=== PATIENT | female | born 1930 | race Caucasian/White ===

== ENCOUNTER 2016-10-09 09:38 | Outpatient (CLI) | payer MEDICARE, OTHER | END 2016-10-09 09:39 | disposition home or self-care (01) | DX: M25.551 Pain in right hip (principal); M89.9 Disorder of bone, unspecified | CPT/HCPCS: 78306; A9503 ==

== ENCOUNTER 2016-10-11 10:51 | Outpatient (CLI) | payer MEDICARE, OTHER | END 2016-10-11 10:52 | disposition home or self-care (01) | DX: M89.9 Disorder of bone, unspecified (principal); Z13.0 Encounter for screening for diseases of the blood and blood-forming organs and certain disorders involving the immune mechanism ==

== ENCOUNTER 2016-10-18 15:36 | Outpatient (CLI) | payer MEDICARE, OTHER | END 2016-10-18 15:37 | disposition home or self-care (01) | DX: Z01.818 Encounter for other preprocedural examination (principal); Z01.812 Encounter for preprocedural laboratory examination; R73.9 Hyperglycemia, unspecified; N39.0 Urinary tract infection, site not specified ==

== ENCOUNTER 2018-02-02 07:23 | Outpatient (CLI) | payer MEDICARE, OTHER ==
[2018-02-02 12:11] LABS: ALBUMIN 3.7 g/dL (3.2-5.5); ALBUMIN/GLOBULIN RATIO 1.2 (1.0-2.2); ALKALINE PHOSPHATASE 58 IU/L (42-121); ALT ALANINE AMINOTRANSFERASE 24 IU/L (10-60); AST ASPARTATE AMINOTRANSFERASE 27 IU/L (10-42); BILIRUBIN,TOTAL 0.7 mg/dL (0.2-1.0); BUN - BLOOD UREA NITROGEN 15 mg/dL (6-20); CALCIUM 9.8 mg/dL (8.5-10.3); CARBON DIOXIDE - CO2 27 mmol/L (21-32); CHLORIDE 107 mmol/L (101-111); CHOL/HDL RATIO 3.1 (<4.4); CHOLESTEROL 147 mg/dL; CREATININE 1.1 mg/dL (0.4-1.0); GFR - MDRD 47 (>89); GLUCOSE 109 mg/dL (70-100); HDL CHOLESTEROL 48 mg/dL; LDL CHOLESTEROL,CALCULATED 79 mg/dL; LDL/HDL RATIO 1.6 (<4.4); SODIUM 140 mmol/L (135-145); TOTAL PROTEIN 6.7 g/dL (6.7-8.2); VLDL CHOLESTEROL 20 mg/dL
[2018-02-02 12:47] LABS: HB2 TOTAL 14.3 g/dL; HEMOGLOBIN A1C 0.56 g/dL; HEMOGLOBIN A1C % 5.7 % (4.6-6.2)
[2018-02-02 17:45] LABS: BASOPHILS % (AUTO) 0.6 %; EOSINOPHILS # (AUTO) 0.2 10^3/uL (0.0-0.7); EOSINOPHILS % (AUTO) 3.7 %; HGB - HEMOGLOBIN 13.4 g/dL (12.0-16.0); LYMPHOCYTES # (AUTO) 1.3 10^3/uL (1.5-3.5); LYMPHOCYTES % (AUTO) 23.6 %; MEAN CORPUSCULAR HGB CONC 32.2 g/dL (32.0-36.0); MEAN PLATELET VOLUME 9.8 fL (7.9-10.8); MONOCYTES # (AUTO) 0.6 10^3/uL (0.0-1.0); MONOCYTES % (AUTO) 11.6 %; NEUTROPHILS # (AUTO) 3.2 10^3/uL (1.5-6.6); NEUTROPHILS % (AUTO) 60.5 %; PLT - PLATELET COUNT 157 10^3/uL (130-450); RED BLOOD COUNT 4.62 10^6/uL (4.20-5.40); RED CELL DISTRIBUTION WIDTH 14.4 % (12.0-15.0); WHITE BLOOD COUNT 5.3 x10^3/uL (4.8-10.8)
== END 2018-02-02 07:24 | disposition home or self-care (01) ==
LOC: LAB.F 07:23
PROVIDERS: ATTEND Family Medicine
DX: R53.83 Other fatigue (principal); F41.8 Other specified anxiety disorders; E78.5 Hyperlipidemia, unspecified
CPT/HCPCS: 36415; 80053; 80061; 83036; 83721; 84443; 85025

== ENCOUNTER 2018-02-04 20:55 | Outpatient (CLI) | payer MEDICARE, OTHER ==
--- NOTE | 2018-02-05 02:28 | Ultrasound Report ---
Procedure Date: 02/04/2018 Accession Number: [id number] / [id number] Procedure: US - Carotid Doppler Complete CPT Code: FULL RESULT: EXAM: BILATERAL CAROTID AND VERTEBRAL ARTERY DUPLEX DOPPLER ULTRASOUND: EXAM DATE: 02/04/2018 09:40 PM CLINICAL HISTORY: Hollenhorst plaque, hyperlipidemia. COMPARISON: None. TECHNIQUE: Grayscale imaging, color Doppler, and duplex spectral Doppler were used to evaluate the carotid and vertebral arteries bilaterally. Static images were obtained. FINDINGS: Mild atheromatous plaques are present in the right carotid bulb extending into the internal carotid artery. However, no hemodynamically significant stenoses are noted. Mild atheromatous plaques are present in the left carotid bulb extending into the internal carotid artery. However, no hemodynamically significant stenoses are noted. Visualized portions of the neck soft tissues are grossly unremarkable. Both vertebral arteries are antegrade in flow. Normal antegrade flow is present in bilateral vertebral arteries. VELOCITIES (cm/sec): Right: RCCA Prox: PSV 163.1 cm/sec. RCCA Dist: PSV 60.3 cm/sec, EDV 16.6 cm/sec. RECA: PSV 98.7 cm/sec. R Bulb: PSV 52.7 cm/sec, EDV 11.1 cm/sec, ICA/CCA ratio 0.9. TRICIA Prox: PSV 76.5 cm/sec, EDV 22.7 cm/sec, ICA/CCA ratio 1.3. TRICIA Mid: PSV 80.2 cm/sec, EDV 22.7 cm/sec, ICA/CCA ratio 1.3. TRICIA Dist: PSV 52.9 cm/sec, EDV 17.6 cm/sec, ICA/CCA ratio 0.9. RVA: PSV 96.4 cm/sec. RVA flow direction: Antegrade. Left: LCCA Prox: PSV 109.2 cm/sec. LCCA Dist: PSV 69.2 cm/sec, EDV 20.0 cm/sec. LECA: PSV 88.7 cm/sec. L Bulb: PSV 46.5 cm/sec, EDV 11.9 cm/sec, ICA/CCA ratio 0.7. LICA Prox: PSV 72.5 cm/sec, EDV 23.3 cm/sec, ICA/CCA ratio 1.1. LICA Mid: PSV 86.0 cm/sec, EDV 30.0 cm/sec, ICA/CCA ratio 1.2. LICA Dist: PSV 88.1 cm/sec, EDV 28.7 cm/sec, ICA/CCA ratio 1.3. LVA: PSV 40.0 cm/sec. LVA flow direction: Antegrade. ICA diameter stenosis: Right: <50% by velocity and <70% by NASCET criteria. Left: <50% by velocity and <70% by NASCET criteria. IMPRESSION: 1. No significant bilateral carotid artery plaquing. 2. In the right carotid artery there are no elevated carotid artery velocities to suggest hemodynamically significant stenosis. 3. In the left carotid artery there are no elevated carotid artery velocities to suggest hemodynamically significant stenosis. 4. Normal antegrade flow is present in bilateral vertebral arteries. General Recommendations: Stenosis =50% ICA - Follow-up ultrasound 6-12 months Stenosis <50% ICA - High Risk Patient with plaque - Follow-up ultrasound 1-2 years Normal Study but High Risk Patient - Follow-up ultrasound 3-5 years Management recommendations and diagnostic criteria are based on current IAC endorsed standards in Carotid Artery Stenosis: Grayscale and Doppler Ultrasound Diagnosis. Validated velocity measurements with angiographic measurements and velocity criteria are extrapolated from diameter data as defined by the Society of Radiologists in Ultrasound Consensus Conference Radiology 2003; 229;340-346. RADIA
== END 2018-02-04 20:56 | disposition home or self-care (01) ==
LOC: DI 20:55
PROVIDERS: ATTEND Family Medicine
DX: H34.219 Partial retinal artery occlusion, unspecified eye (principal); E78.5 Hyperlipidemia, unspecified
CPT/HCPCS: 93880

== ENCOUNTER 2018-07-08 09:58 | Outpatient (CLI) | payer MEDICARE, OTHER ==
--- NOTE | 2018-07-08 10:46 | XRAY Report ---
Reason: KNEE PAIN,LEFT Procedure Date: 07/08/2018 Accession Number: [id number] / [id number] Procedure: XR - Knee 3 View LT CPT Code: FULL RESULT: EXAM: LEFT KNEE RADIOGRAPHY EXAM DATE: 07/08/2018 10:13 AM. CLINICAL HISTORY: Knee pain, left. COMPARISON: XR KNEE 3 VIEW 05/18/2007 12:05 PM. TECHNIQUE: 3 views. FINDINGS: Bones: Normal. No fractures or bone lesions. Joints: Mild tricompartmental joint space narrowing. No significant effusion. No subluxation. Soft Tissues: Normal. No soft tissue swelling. IMPRESSION: Tricompartmental osteoarthrosis, mild. RADIA
== END 2018-07-08 09:59 | disposition home or self-care (01) ==
LOC: DI 09:58
PROVIDERS: ATTEND Internal Medicine
DX: M17.12 Unilateral primary osteoarthritis, left knee (principal)

== ENCOUNTER 2019-10-01 11:28 | Outpatient (CLI) | payer MEDICARE, OTHER | END 2019-10-01 11:29 | disposition critical access hospital (66) | LOC: EMS 11:28 | PROVIDERS: ATTEND Surgery | DX: R55 Syncope and collapse (principal); R07.9 Chest pain, unspecified; R05 Cough | CPT/HCPCS: A0425; A0427 ==

== ENCOUNTER 2019-10-01 11:48 | Emergency (ER) | payer MEDICARE, OTHER ==
[2019-10-01 12:47] LABS: BASOPHILS % (AUTO) 0.2 %; EOSINOPHILS # (AUTO) 0.1 10^3/uL (0.0-0.7); EOSINOPHILS % (AUTO) 2.7 %; HGB - HEMOGLOBIN 12.6 g/dL (12.0-16.0); LYMPHOCYTES # (AUTO) 1.5 10^3/uL (1.5-3.5); LYMPHOCYTES % (AUTO) 28.7 %; MEAN CORPUSCULAR HEMOGLOBIN 29.3 pg (27.0-31.0); MEAN CORPUSCULAR HGB CONC 32.4 g/dL (32.0-36.0); MEAN CORPUSCULAR VOLUME 90.5 fL (81.0-99.0); MEAN PLATELET VOLUME 10.9 fL (7.9-10.8); MONOCYTES # (AUTO) 0.6 10^3/uL (0.0-1.0); MONOCYTES % (AUTO) 11.5 %; NEUTROPHILS # (AUTO) 2.9 10^3/uL (1.5-6.6); NEUTROPHILS % (AUTO) 56.7 %; PLT - PLATELET COUNT 155 10^3/uL (130-450); RED CELL DISTRIBUTION WIDTH 13.7 % (12.0-15.0); WHITE BLOOD COUNT 5.1 x10^3/uL (4.8-10.8)
--- NOTE | 2019-10-01 12:47 | XRAY Report ---
Reason: Chest Pain Procedure Date: 10/01/2019 Accession Number: [id number] / [id number] Procedure: XR - Chest 1 View X-Ray CPT Code: 61158 Final Report FULL RESULT: EXAM: CHEST RADIOGRAPHY EXAM DATE: 10/01/2019 12:36 PM. CLINICAL HISTORY: Chest Pain. COMPARISON: CHEST 2 VIEW PA/LAT 05/08/2015 5:00 PM. TECHNIQUE: 1 view. FINDINGS: Lungs/Pleura: No focal opacities evident. No pleural effusion. No pneumothorax. Mediastinum: Within exam limitations, the cardiomediastinal contour is normal. Other: DJD spine. Left shoulder anchor. IMPRESSION: No active cardiopulmonary disease RADIA
[2019-10-01 13:01] LABS: ALBUMIN 3.7 g/dL (3.2-5.5); ALBUMIN/GLOBULIN RATIO 1.4 (1.0-2.2); BILIRUBIN,TOTAL 0.6 mg/dL (0.2-1.0); CALCIUM 9.8 mg/dL (8.5-10.3); CREATININE 1.1 mg/dL (0.4-1.0); TOTAL PROTEIN 6.3 g/dL (6.7-8.2)
--- NOTE | 2019-10-01 13:14 | ED Physician Documentation ---
PD HPI SYNCOPE - Stated complaint Stated Complaint: SYNCOPE - Chief complaint Chief Complaint: General - History obtained from History obtained from: Patient, Family (son), EMS - History of Present Illness Witnessed: Witnessed (son) Timing - onset: How many minutes ago Duration: Minutes (few) Associated symptoms: Dyspnea (has had cough and congestion for 1-2 weeks.). No: Headache, Chest pain, Abdominal pain Contributing factors: Decreased PO intake. No: Recent med change, Noxious stimulae Injury occurred: No: Fell, Head injury, Neck injury Similar symptoms before: No diagnosis (patient and son says she has had fainting type episodes with blank stare and no activity intermittently for few years. Had workup with ECHO, MRI, labs, and Holter. Does not sound like EEG. No firm dx with consideration of syncopal episodes vs atypical seizures. Had few meds without improvement and subsequently started on Cymbalta and did not have episodes (very infrequently) the past couple of years.) Recently seen: Not recently seen Review of Systems Constitutional: reports: Myalgias. denies: Fever, Chills Eyes: denies: Loss of vision Ears: denies: Loss of hearing Nose: reports: Congestion Throat: denies: Sore throat Cardiac: reports: Chest pain / pressure. denies: Palpitations Respiratory: reports: Dyspnea, Cough GI: denies: Abdominal Pain, Nausea, Vomiting, Diarrhea : denies: Dysuria Skin: denies: Abrasion (s), Laceration (s) Neurologic: denies: Generalized weakness, Focal weakness, Numbness, Altered mental status, Headache Endocrine: denies: Easy bruising / bleeding Immunocompromised: denies: Immunocompromised PD PAST MEDICAL HISTORY - Past Medical History Cardiovascular: Murmur Respiratory: None Neuro: Fainting (versus seizures non-tonic/clonic) Endocrine/Autoimmune: None GI: GERD, Colon polyps, Chronic constipation, Other : Renal insuffiency HEENT: Chronic hearing loss Psych: Depression, Anxiety Musculoskeletal: Osteoarthritis, Osteoporosis, Chronic back pain - Past Surgical History Past Surgical History: Yes General: Cholecystectomy, Appendectomy, Colonoscopy, EGD, 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 HEENT: Cataracts - Present Medications Home Medications: Ambulatory Orders Medication Instructions Recorded Confirmed DULoxetine [Cymbalta] 60 mg PO DAILY 10/16/13 03/20/15 Ibandronate Sodium [Boniva] 150 mg PO ONCE 03/17/15 03/20/15 Multivitamin [Multivitamins] 1 each PO DAILY 03/17/15 03/20/15 diazePAM [Valium] 5 - 10 mg PO ONCE 03/20/15 03/20/15 Albuterol [Ventolin Hfa] 2 puffs INH Q4H PRN #1 inhaler 05/08/15 Meclizine [Antivert] 12.5 mg PO Q6H PRN #20 tablet 05/08/15 Albuterol Sulfate [Albuterol 2 puffs IH QID #1 hfa.aer.ad 10/01/19 Sulfate Hfa] Benzonatate [Tessalon Perle] 100 mg PO TID PRN #20 capsule 10/01/19 Doxycycline Monohydrate 100 mg PO BID #14 tablet 10/01/19 dexAMETHasone [Decadron] 4 mg PO DAILY #5 tablet 10/01/19 - Allergies Allergies/Adverse Reactions: Allergies Allergy/AdvReac Type Severity Reaction Status Date / Time adhesive AdvReac Severe Skin comes Verified 03/17/15 10:37 off - Social History Does the pt smoke?: No Smoking Status: Never smoker Does the pt drink ETOH?: No PD ED PE NORMAL - Vitals Vital signs reviewed: Yes - General General: Alert and oriented X 3, No acute distress, Well developed/nourished - HEENT HEENT: Ears normal, Moist mucous membranes, Pharynx benign - Neck Neck: Supple, no meningeal sign, No adenopathy - Cardiac Cardiac: RRR, No murmur - Respiratory Respiratory: Clear bilaterally - Abdomen Abdomen: Soft, Non tender - Derm Derm: Normal color, Warm and dry - Extremities Extremities: No tenderness to palpate, Normal ROM s pain, No edema, No calf tenderness / cord - Neuro Neuro: Alert and oriented X 3, 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, No motor deficit, No sensory deficit, Normal speech Eye Opening: Spontaneous Motor: Obeys Commands Verbal: Oriented GCS Score: 15 - Psych Psych: Normal mood, Normal affect Results - Vitals Vitals: Vital Signs - 24 hr 10/01/19 10/01/19 10/01/19 11:49 13:00 14:00 Temperature 37.1 C Heart Rate 58 L 58 L 57 L Respiratory 16 20 16 Rate Blood Pressure 132/83 H 112/57 L 118/58 L O2 Saturation 99 100 95 02/21/20 02/21/20 14:35 15:30 Temperature Heart Rate 62 59 L Respiratory 23 16 Rate Blood Pressure 115/74 O2 Saturation 100 Oxygen O2 Source Room air - EKG (time done) 11:59 Rate: Rate (enter#) (59) Rhythm: NSR [place]: Normal Intervals: Normal MT QRS: Normal Ischemia: Normal ST segments. No: ST elevation c/w ischemia, ST depression - Labs Labs: Laboratory Tests 10/01/19 10/01/19 10/01/19 12:41 12:41 12:41 WBC 5.1 RBC 4.30 Hgb 12.6 Hct 38.9 MCV 90.5 MCH 29.3 MCHC 32.4 RDW 13.7 Plt Count 155 MPV 10.9 H Neut # (Auto) 2.9 Lymph # (Auto) 1.5 [place] # (Auto) 0.6 Eos # (Auto) 0.1 Baso # (Auto) 0.0 Absolute Nucleated RBC 0.00 Nucleated RBC % 0.0 Sodium 141 Potassium 3.7 Chloride 109 Carbon Dioxide 25 Anion Gap 7.0 BUN 21 H Creatinine 1.1 H Estimated GFR (MDRD) 47 L Glucose 110 H Calcium 9.8 Total Bilirubin 0.6 AST 24 ALT 27 Alkaline Phosphatase 47 Troponin I High Sens 4.4 Total Protein 6.3 L Albumin 3.7 Globulin 2.6 Albumin/Globulin Ratio 1.4 Lipase 38 - Rads (name of study) chest xray Radiology: Prelim report reviewed (no acute cardiopulmonary process), See rad report PD MEDICAL DECISION MAKING - ED course Complexity details: considered differential (patient with history of syncopal/abscence seizure episodes that had been better since on Cymbalta the past couple of years. Has had now cough and congestion for few weeks, with a few episodes of the syncope during that time. Had one today that lasted longer than usual ones (few minutes rather than under a minute). Otherwise seems okay now. ), d/w patient, d/w family (son) Departure - Departure Disposition: 01 Home, Self Care Clinical Impression: Upper respiratory infection Qualifiers: URI type: unspecified URI Qualified Code(s): J06.9 - Acute upper respiratory infection, unspecified Syncope Qualifiers: Syncope type: unspecified Qualified Code(s): R55 - Syncope and collapse Condition: Stable Record reviewed to determine appropriate education?: Yes Instructions: ED URI Viral W Wheezing Follow-Up: Adan Jane MD [Primary Care Provider] - Prescriptions: Albuterol Sulfate [Albuterol Sulfate Hfa] 2 puffs IH QID #1 hfa.aer.ad Benzonatate [Tessalon Perle] 100 mg PO TID PRN #20 capsule PRN Reason: Cough dexAMETHasone [Decadron] 4 mg PO DAILY #5 tablet Doxycycline Monohydrate 100 mg PO BID #14 tablet Comments: Continue your usual Cymbalta 60 mg daily. Stay well-hydrated. For your cough and wheezing, use the albuterol inhaler 2 puffs 4 times a day as well as Decadron 4 mg daily and the doxycycline antibiotic twice daily for a week. Add benzonatate if needed for cough suppression. Recheck if not improving well over the next few days. Follow-up with your primary care regarding the current Cymbalta medication if that is adequate enough since you have had increasing in your fainting episodes. Discharge Date/Time: 10/01/19 15:30
[2019-10-01] MEDS ORDERED: ALBUTEROL NEB 2.5 MG/3 ML INH STA (14:09)
[2019-10-01] MEDS ORDERED: CHERRY SYRUP 10 ML UDC PO ONE (14:10)
[2019-10-01] MEDS ORDERED: DEXAMETHASONE 10 MG/ML VIAL PO STA (14:10)
[2019-10-01] MEDS ORDERED: BENZONATATE 100 MG CAPSULE PO STA (14:10)
[2019-10-01] MEDS ORDERED: KETOROLAC 15 MG/ML VIAL IVP STA (14:11)
[2019-10-01 19:37] VITALS: BP 115/74
== END 2019-10-01 15:30 | disposition home or self-care (01) ==
LOC: EDUNIT# → ED 11:48
DX: J06.9 Acute upper respiratory infection, unspecified (principal); R55 Syncope and collapse
CPT/HCPCS: 36415; 71045; 80053; 83690; 84484; 85025; 93005; 94640; 96374; 99283; 99284; A9270

== ENCOUNTER 2020-01-26 14:04 | Outpatient (CLI) | payer MEDICARE, OTHER ==
--- NOTE | 2020-01-26 14:34 | XRAY Report ---
PROCEDURE: Ribs w/PA Chest RT INDICATIONS: RIGHT RIB PAIN TECHNIQUE: 2 views of the right ribs were acquired, along with a single view chest. COMPARISON: FINDINGS: Surgical changes and devices: None. Bones and chest wall: No fractures or dislocations. No suspicious bony lesions. Overlying soft tis sues appear unremarkable. Lungs and pleura: No pleural effusions or pneumothorax. Lungs appear clear. Mediastinum: Mediastinal contours appear normal. Heart size is normal. IMPRESSION: No acute fracture. No osseous lesion. If symptoms and/or clinical suspicion for pathology continue, f urther assessment with repeat plain films, or advanced imaging (e.g., CT or bone scan) is recommended for further assessment. Reviewed by: Gene Ludwig MD on 01/26/2020 2:33 PM PDT Approved by: Gene Ludwig MD on 01/26/2020 2:33 PM PDT Station ID: [id number]
== END 2020-01-26 14:05 | disposition home or self-care (01) ==
LOC: DI.S 14:04
PROVIDERS: ATTEND Family Medicine
DX: R07.81 Pleurodynia (principal)

== ENCOUNTER 2020-07-10 08:00 | Outpatient (CLI) | payer MEDICARE, OTHER | END 2020-07-10 23:59 | disposition home or self-care (01) | LOC: LAB.WCP 08:00 | PROVIDERS: ATTEND Internal Medicine | DX: R10.30 Lower abdominal pain, unspecified (principal) | CPT/HCPCS: 81002 ==

== ENCOUNTER 2020-07-11 11:41 | Outpatient (CLI) | payer MEDICARE, OTHER ==
[2020-07-11 12:07] LABS: BASOPHILS % (AUTO) 0.4 %; EOSINOPHILS # (AUTO) 0.3 10^3/uL (0.0-0.7); HGB - HEMOGLOBIN 13.3 g/dL (12.0-16.0); LYMPHOCYTES # (AUTO) 0.8 10^3/uL (1.5-3.5); LYMPHOCYTES % (AUTO) 17.3 %; MEAN CORPUSCULAR HEMOGLOBIN 28.9 pg (27.0-31.0); MEAN CORPUSCULAR HGB CONC 31.9 g/dL (32.0-36.0); MEAN CORPUSCULAR VOLUME 90.5 fL (81.0-99.0); MEAN PLATELET VOLUME 9.9 fL (7.9-10.8); MONOCYTES # (AUTO) 0.7 10^3/uL (0.0-1.0); MONOCYTES % (AUTO) 13.9 %; PLT - PLATELET COUNT 198 10^3/uL (130-450); RED BLOOD COUNT 4.61 10^6/uL (4.20-5.40); RED CELL DISTRIBUTION WIDTH 13.2 % (12.0-15.0); WHITE BLOOD COUNT 4.8 x10^3/uL (4.8-10.8)
[2020-07-11] MEDS ORDERED: IOVERSOL 320 100 ML VIAL IVP ONE ×2 (12:16→13:27)
[2020-07-11] MEDS ORDERED: IOVERSOL 320 50 ML VIAL ONE (12:16)
[2020-07-11 12:18] LABS: ALBUMIN/GLOBULIN RATIO 1.3 (1.0-2.2); BILIRUBIN,TOTAL 0.7 mg/dL (0.2-1.0); CALCIUM 10.5 mg/dL (8.5-10.3); CREATININE 1.1 mg/dL (0.4-1.0); TOTAL PROTEIN 7.2 g/dL (6.7-8.2)
[2020-07-11] MEDS ORDERED: IOVERSOL 320 50 ML VIAL PO ONE (13:26)
--- NOTE | 2020-07-11 13:51 | CT Report ---
PROCEDURE: Abdomen/Pelvis W INDICATIONS: ABD PAIN CONTRAST: IV CONTRAST: Optiray 320 ml: 100 PO CONTRAST: Optiray 320 ml50 TECHNIQUE: After the administration of contrast, 5 mm thick sections acquired from the diaphragms to the sym physis. 5 mm thick coronal and sagittal reformats were acquired. For radiation dose reduction, the following was used: automated exposure control, adjustment of mA and/or kV according to patient size . COMPARISON: None. FINDINGS: Image quality: Excellent. ABDOMEN: Lung bases: Lung bases are clear. Heart size is normal. Solid organs: Liver and spleen are normal in size and enhancement. Gallbladder has been removed. B iliary system is non dilated. Pancreas enhances normally. No adrenal nodules. Kidneys demonstrate normal size and enhancement, without hydronephrosis. Peritoneum and bowel: There is a large volume of formed stool throughout most of the colon. There is an area of the sigmoid colonic wall thickening with questionable adjacent fat stranding, and possible engorgement of the vasa recta. There is also diffuse luminal narrowing involving the segment of the colon. Proximal to this there is a large volume of formed stool in the remainder of the sigmoid and d escending colon. There is a separate area of colonic wall thickening at the splenic flexure, which is somewhat eccentric (for example on series 3 image 23 measuring 2 cm posteriorly while only measuring 0.6 mm anteriorly. There is no abnormally dilated loop of bowel. Anastomotic sutures are seen at the hepatic flexure colon with and patulous mildly dilated appearance of the anastomosis. Nodes and vessels: No retroperitoneal or mesenteric adenopathy by size criteria. Aorta and inferior vena cava are normal in size. Miscellaneous: No ventral hernias. PELVIS: Genitourinary: Bladder wall thickness is normal. Miscellaneous: No inguinal hernias or adenopathy. Bones: No suspicious bony lesions. No vertebral body compression fractures. IMPRESSION: Thickened segment of the distal sigmoid colon with subtle adjacent inflammatory changes, presumably i ndicating diverticulitis. Correlate with white blood cell count, fever, and Hemoccult status. Luminal narrowing with large volume of inspissated stool proximal to this thickened segment of sigmoid colon raises concern for an underlying neoplasm. A separate area of eccentric wall thickening in the splen ic flexure is also suspicious for neoplasm. A follow-up colonoscopy in the near future is recommended . Reviewed by: Casey Montalvo MD on 07/11/2020 1:49 PM PST Approved by: Casey Montalvo MD on 07/11/2020 1:49 PM PST Station ID: [id number]
== END 2020-07-11 11:42 | disposition home or self-care (01) ==
LOC: DI 11:41
PROVIDERS: ATTEND Internal Medicine
DX: R93.3 Abnormal findings on diagnostic imaging of other parts of digestive tract (principal); Z85.038 Personal history of other malignant neoplasm of large intestine
CPT/HCPCS: 36415; 74177; 80053; 82378; 85025; Q9967

== ENCOUNTER 2020-07-13 14:37 | Inpatient (IN) | payer MEDICARE, OTHER ==
[2020-07-13] MEDS ORDERED: SODIUM CHLORIDE 0.9% 1,000 ML IV STA ×2 (14:57→15:07)
[2020-07-13 15:27] LABS: BASOPHILS % (AUTO) 0.4 %; EOSINOPHILS # (AUTO) 0.3 10^3/uL (0.0-0.7); EOSINOPHILS % (AUTO) 4.1 %; HGB - HEMOGLOBIN 14.1 g/dL (12.0-16.0); LYMPHOCYTES % (AUTO) 14.3 %; MEAN CORPUSCULAR HEMOGLOBIN 29.2 pg (27.0-31.0); MEAN CORPUSCULAR HGB CONC 32.6 g/dL (32.0-36.0); MEAN CORPUSCULAR VOLUME 89.4 fL (81.0-99.0); MEAN PLATELET VOLUME 10.3 fL (7.9-10.8); MONOCYTES # (AUTO) 0.8 10^3/uL (0.0-1.0); MONOCYTES % (AUTO) 12.1 %; NEUTROPHILS # (AUTO) 4.6 10^3/uL (1.5-6.6); NEUTROPHILS % (AUTO) 68.7 %; PLT - PLATELET COUNT 222 10^3/uL (130-450); RED BLOOD COUNT 4.83 10^6/uL (4.20-5.40); RED CELL DISTRIBUTION WIDTH 13.1 % (12.0-15.0); WHITE BLOOD COUNT 6.8 x10^3/uL (4.8-10.8)
--- NOTE | 2020-07-13 15:35 | ED Physician Documentation ---
History of Present Illness - Stated complaint Stated Complaint: ABD PAIN - Chief complaint Chief Complaint: Abd Pain - History obtained from History obtained from: Patient, Family - History of Present Illness Timing: Prior to arrival - Additonal information Additional information: 89-year-old female comes to the emergency department for evaluation of persistent abdominal pain. She reports that for about 2 to 3 weeks she has been having generalized belly pain. She did see her primary care provider 2 days ago and had routine labs obtained as well as a CAT scan of the abdomen. The CAT scan did show diverticulitis. There is also concern for possible colon neoplasm and they would recommend a colonoscopy in follow-up. Patient was started on Augmentin which she has been taking for 2 days but does not feel that the pain is improved. She reports that she is pooping adequately without melena or hematochezia. She has had no fevers or vomiting. She has been doing a clear liquid diet. Denies dysuria or urinary urgency frequency Review of Systems Constitutional: reports: Reviewed and negative Ears: reports: Reviewed and negative Nose: reports: Reviewed and negative Throat: reports: Reviewed and negative Cardiac: reports: Reviewed and negative Respiratory: reports: Reviewed and negative GI: reports: Abdominal Pain. denies: Nausea, Vomiting, Constipation, Diarrhea, Hematemesis : reports: Reviewed and negative Musculoskeletal: reports: Reviewed and negative Neurologic: reports: Reviewed and negative PD PAST MEDICAL HISTORY - Past Medical History Cardiovascular: Murmur Respiratory: None Neuro: Fainting Endocrine/Autoimmune: None GI: GERD, Colon polyps, Chronic constipation, Other : Renal insuffiency HEENT: Chronic hearing loss Psych: Depression, Anxiety Musculoskeletal: Osteoarthritis, Osteoporosis, Chronic back pain - Past Surgical History Past Surgical History: Yes General: Cholecystectomy, Appendectomy, Colonoscopy, EGD, Other /MITOCHONDRIAL DISORDERS 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 HEENT: Cataracts - Present Medications Home Medications: Ambulatory Orders Medication Instructions Recorded Confirmed DULoxetine [Cymbalta] 60 mg PO DAILY 10/16/13 03/20/15 Ibandronate Sodium [Boniva] 150 mg PO ONCE 03/17/15 03/20/15 Multivitamin [Multivitamins] 1 each PO DAILY 03/17/15 03/20/15 diazePAM [Valium] 5 - 10 mg PO ONCE 03/20/15 03/20/15 Albuterol [Ventolin Hfa] 2 puffs INH Q4H PRN #1 inhaler 05/08/15 Meclizine [Antivert] 12.5 mg PO Q6H PRN #20 tablet 05/08/15 Albuterol Sulfate [Albuterol 2 puffs IH QID #1 hfa.aer.ad 10/01/19 Sulfate Hfa] Benzonatate [Tessalon Perle] 100 mg PO TID PRN #20 capsule 10/01/19 Doxycycline Monohydrate 100 mg PO BID #14 tablet 10/01/19 dexAMETHasone [Decadron] 4 mg PO DAILY #5 tablet 10/01/19 - Allergies Allergies/Adverse Reactions: Allergies Allergy/AdvReac Type Severity Reaction Status Date / Time adhesive AdvReac Severe Skin comes Verified 07/13/20 14:54 off - Social History Does the pt smoke?: No Smoking Status: Never smoker Does the pt drink ETOH?: No Does the pt have substance abuse?: No PD ED PE EXPANDED - General General: Alert, No acute distress - Cardiac Cardiac: Regular Rate, Regular Rhythm, Radial strong equal, Pedal strong equal, Cap refill < 2 sec - Respiratory Respiratory: Clear to ausultation gricelda. No: Distress, Labored - Abdomen Abdomen: Tender to palpation, Rebound, Generalized/diffuse. No: Guarding (Generally tender abdomen right greater than left with some rebound but no guarding.) - Derm Derm: Normal color. No: Rash - Extremities Extremities: Normal - GCS Eye Opening: Spontaneous Motor: Obeys Commands Verbal: Oriented Total: 15 Results - Vitals Vitals: Vital Signs - 24 hr 07/13/20 07/13/20 14:47 16:54 Temperature 36.5 C Heart Rate 84 70 Respiratory 16 18 Rate Blood Pressure 127/68 134/76 H O2 Saturation 98 99 Oxygen O2 Source Room air - Labs Labs: Laboratory Tests 07/13/20 07/13/20 07/13/20 15:11 15:11 15:24 WBC 6.8 RBC 4.83 Hgb 14.1 Hct 43.2 MCV 89.4 MCH 29.2 MCHC 32.6 RDW 13.1 Plt Count 222 MPV 10.3 Neut # (Auto) 4.6 Lymph # (Auto) 1.0 L [place] # (Auto) 0.8 Eos # (Auto) 0.3 Baso # (Auto) 0.0 Absolute Nucleated RBC 0.00 Nucleated RBC % 0.0 Sodium 139 Potassium 3.8 Chloride 101 Carbon Dioxide 25 Anion Gap 13.0 BUN 14 Creatinine 1.3 H Estimated GFR (MDRD) 39 L Glucose 113 H Lactic Acid 1.1 Calcium 10.5 H Total Bilirubin 0.8 AST 26 ALT 28 Alkaline Phosphatase 66 Total Protein 7.5 Albumin 4.0 Globulin 3.5 Albumin/Globulin Ratio 1.1 Lipase 34 Urine Color Urine Clarity Urine pH Ur Specific [place] Urine Protein Urine Glucose (UA) Urine Ketones Urine Occult Blood Urine Nitrite Urine Bilirubin Urine Urobilinogen Ur Leukocyte Esterase Ur Microscopic Review Urine Culture Comments 07/13/20 16:08 WBC RBC Hgb Hct MCV MCH MCHC RDW Plt Count MPV Neut # (Auto) Lymph # (Auto) [place] # (Auto) Eos # (Auto) Baso # (Auto) Absolute Nucleated RBC Nucleated RBC % Sodium Potassium Chloride Carbon Dioxide Anion Gap BUN Creatinine Estimated GFR (MDRD) Glucose Lactic Acid Calcium Total Bilirubin AST ALT Alkaline Phosphatase Total Protein Albumin Globulin Albumin/Globulin Ratio Lipase Urine Color YELLOW Urine Clarity CLEAR Urine pH 6.0 Ur Specific [place] 1.025 Urine Protein NEGATIVE Urine Glucose (UA) NEGATIVE Urine Ketones 15 H Urine Occult Blood NEGATIVE Urine Nitrite NEGATIVE Urine Bilirubin NEGATIVE Urine Urobilinogen 0.2 (NORMAL) Ur Leukocyte Esterase NEGATIVE Ur Microscopic Review NOT INDICATED Urine Culture Comments NOT INDICATED - Rads (name of study) CT abd Radiology: Final report received (An intermediate segment of bowel wall thickening is again seen in the sigmoid colon that may represent colitis or diverticulitis although an underlying neoplasm is not excluded. No significant change from the CT when compared from 07/11/2020) PD MEDICAL DECISION MAKING - ED course Complexity details: reviewed results, re-evaluated patient, considered differential, d/w patient ED course: 89-year-old female presents to the emergency department for evaluation of worsening abdominal pain. Recently diagnosed with diverticulitis and started on Augmentin. Despite 2 days of therapy she feels that the pain is worsening. CT scan completed 2 days ago did show findings of diverticulitis but there is also concern for possible colonic neoplasm. On evaluation today she has no leukocytosis and her creatinine is mildly elevated at 1.3. She was Given 1 additional liter of fluid. I did repeat CT imaging today and unfortunately it is essentially unchanged from 2 days ago. However given the worsening pain and concern for neoplasm I consulted with our hospitalist Dr. H. She agrees to bring the patient in as an inpatient for further treatment of her diverticulitis and evaluation with surgery for possible colonoscopy. Departure - Departure Disposition: [facility] DC/[place] Clinical Impression: Diverticulitis, Colonic mass
[2020-07-13 15:40] LABS: ALBUMIN/GLOBULIN RATIO 1.1 (1.0-2.2); BILIRUBIN,TOTAL 0.8 mg/dL (0.2-1.0); CALCIUM 10.5 mg/dL (8.5-10.3); CREATININE 1.3 mg/dL (0.4-1.0); TOTAL PROTEIN 7.5 g/dL (6.7-8.2)
[2020-07-13 16:18] LABS: BILIRUBIN,URINE NEGATIVE (NEGATIVE); GLUCOSE, URINE (UA) NEGATIVE (NEGATIVE); KETONES,URINE (UA) 15 mg/dL (NEGATIVE); LEUKOCYTE ESTERASE, URINE NEGATIVE (NEGATIVE); NITRITE,URINE NEGATIVE (NEGATIVE); OCCULT BLOOD,URINE NEGATIVE (NEGATIVE); PROTEIN,URINE NEGATIVE (NEGATIVE); UROBILINOGEN,URINE 0.2 (NORMAL) E.U./dL (NORMAL)
[2020-07-13 16:19] LABS: CLARITY,URINE CLEAR (CLEAR)
[2020-07-13] MEDS ORDERED: IOVERSOL 320 100 ML VIAL IVP ONE ×2 (16:34→16:41)
--- NOTE | 2020-07-13 17:12 | CT Report ---
PROCEDURE: Abdomen/Pelvis W INDICATIONS: worsenging abd pain R>L CONTRAST: IV CONTRAST: Optiray 320 ml: 80 PO CONTRAST: *NO PO CONTRAST TECHNIQUE: After the administration of oral and intravenous contrast, 5 mm thick sections acquired from the diap hragms to the symphysis. 5 mm thick coronal and sagittal reformats were acquired. For radiation dos e reduction, the following was used: automated exposure control, adjustment of mA and/or kV accordin g to patient size. COMPARISON: CT abdomen/pelvis 07/11/2020 FINDINGS: Image quality: Excellent. ABDOMEN: Lung bases: Mild peripheral reticulations in the lung bases may represent atelectasis or early fibrot ic changes. Heart size is normal. Solid organs: Liver and spleen are normal in size and enhancement. A coarse calcification is noted in the spleen. Gallbladder is surgically absent. Biliary system is non dilated. Pancreas enhances n ormally. No adrenal nodules. Kidneys demonstrate normal size and enhancement, without hydronephrosi s. Small bilateral renal cysts. Peritoneum and bowel: Segment of bowel wall thickening are seen in the sigmoid colon similar to the C T from 07/11/2020, possibly representing colitis or diverticulitis, although an underlying neoplasm is not excluded. An additional short segment of bowel wall thickening is seen at the splenic flexure. C hronic postsurgical changes are again noted at the ascending colon. No extravasation of oral contrast material is seen. There is no ascites or pneumoperitoneum. No signs of bowel obstruction are seen. Nodes and vessels: No retroperitoneal or mesenteric adenopathy by size criteria. Aorta and inferior vena cava are normal in size. Atherosclerotic calcifications are seen in the aorta. Miscellaneous: No ventral hernias. PELVIS: Genitourinary: Bladder wall thickness is normal. Miscellaneous: No inguinal hernias or adenopathy. Bones: No suspicious bony lesions. No vertebral body compression fractures. Degenerative arthropla sty is noted with associated metallic streak artifact. IMPRESSION: An intermediate segment of bowel wall thickening is again seen in the sigmoid colon that may represen t colitis or diverticulitis, although an underlying neoplasm is not excluded. Short segments of possi ble bowel wall thickening or underdistention are also noted in the descending colon at the splenic fl exure. Findings do not appear significantly changed when compared to the CT from 07/11/2020. No signs of bowel obstruction. No abdominal fluid collections or pneumoperitoneum. Reviewed by: Harish Marqeuz MD on 07/13/2020 4:11 PM [facility] Approved by: Harish Marquez MD on 07/13/2020 4:11 PM [facility] Station ID: [id number]
[2020-07-13] MEDS ORDERED: ACETAMINOPHEN 325 MG TABLET PO PRN (17:33)
[2020-07-13] MEDS ORDERED: ONDANSETRON 4 MG/2 ML VIAL IVP PRN (17:33)
[2020-07-13] MEDS ORDERED: oxyCODONE 5 MG TABLET PO PRN (17:33)
[2020-07-13] MEDS ORDERED: MORPHINE 2 MG/ML CARPUJECT IVP PRN (17:33)
[2020-07-13] MEDS ORDERED: SODIUM CHLORIDE FLUSH 0.9% 10 ML SYRINGE IVP PRN (17:33)
--- NOTE | 2020-07-13 17:49 | HISTORY & PHYSICAL EXAMINATION ---
Chief Complaint - Chief Complaint Chief Complaint: abdominal pain History of Present Illness - Admitted From Admitted From:: ER - History Obtained From Records Reviewed: [facility] History obtained from: pt Exam Limitations: no - History of Present Illness HPI Comment/Other: This is a 89-year-old female with a PMH significant for colon cancer, Heart murmur, fainting, GERD, colon polyps, chronic constipation, renal insuffic iency, chronic healing loss, depression, anxiety, osteoarthritis, osteoporosis, chronic back pain, who comes to the emergency department for complain of persistent abdominal pain. Patient report she had a history of colon cancer, she had a surgery in 1971 which removed her colon 14 cm. Patient also report she had a colonoscopy about 10 years ago which was normal as she report. She reports She had a generalized abdominal pain for about 2 to 3 weeks. She denies nausea, vomiting, diarrhea. She went to see her primary care provider 2 days ago, had routine labs and had a CAT scan of the abdomen. The CAT scan show sigmoid colon diverticulitis, also concern for possible colon neoplasm, Short segments of possible bowel wall thickening and under distention are also noted in the descending colon. pt was recommended a colonoscopy in follow-up. Patient was started on Augmentin in her PCP office which she has been taking for 2 days but does not feel improved. repeated CT imaging on today which is essentially unchanged from 2 days ago. She denies melena or hematochezia. she denies chest pain, fever, chill, shortness of breath. Discussed the care goal with the patient, patient request DNR History - Past Medical History Cardiovascular: reports: Murmur Respiratory: reports: None Neuro: reports: Fainting Endocrine/Autoimmune: reports: None GI: reports: GERD, Colon polyps, Chronic constipation, Other : reports: Renal insuffiency HEENT: reports: Chronic hearing loss Psych: reports: Depression, Anxiety Musculoskeletal: reports: Osteoarthritis, Osteoporosis, Chronic back pain MRSA Hx?: No - Past Surgical History General: reports: Cholecystectomy, Appendectomy, Colonoscopy, EGD, Other /[employer]: reports: Hysterectomy HEENT: reports: Cataracts - Family & Social History Family History: Mother: , Father: Family History Comment/Other: Patient report her father at age 36 due to uncontrolled diabetic, Her mother at age 97 with congestive heart failure and diabetic Social History Notes: Patient denying history of smoker, alcohol and drug use. She is living at [facility], she had her 2 children, 1 son and 1 daughter Meds/Allgy - Home Medications Home Medications: Ambulatory Orders Medication Instructions Recorded Confirmed DULoxetine [Cymbalta] 60 mg PO DAILY 10/16/13 03/20/15 Ibandronate Sodium [Boniva] 150 mg PO ONCE 03/17/15 03/20/15 Multivitamin [Multivitamins] 1 each PO DAILY 03/17/15 03/20/15 Albuterol [Ventolin Hfa] 2 puffs INH Q4H PRN #1 inhaler 05/08/15 - Allergies Allergies/Adverse Reactions: Allergies Allergy/AdvReac Type Severity Reaction Status Date / Time adhesive AdvReac Severe Skin comes Verified 07/13/20 14:54 off Review of Systems - Constitutional Constitutional: denies: Fatigue, Fever, Chills, Malaise, Weakness, Poor appetite, Diaphoresis, Night sweats - Eyes Eyes: denies: Pain, Blurred vision, Field loss, Vision loss, Dipolpia - Ears, Nose & Throat Ears, Nose & Throat: denies: Ear pain, Hearing aids, Nosebleeds, Bleeding gums - Cardiovascular Cariovascular: denies: Irregular heart rate, Palpitations, Chest pain, Edema, Lightheadedness, Syncope, Exertional dyspnea, Decr. exercise tolerance - Respiratory Respiratory: reports: Cough. denies: Sputum production, Wheezing, Snoring - Gastrointestinal Gastrointestinal: reports: Abdominal pain, Constipation. denies: Abdominal distention, Diarrhea, Rectal bleeding, Black stools, Bloody stools, Nausea, Vomiting, Adarsh blood emesis - Genitourinary Genitourinary: denies: Dysuria, Urgency, Incontinence - Musculoskeletal Musculoskeletal: denies: Muscle pain, Muscle aches, Limited range of motion - Integumentary Integumentary: denies: Rash, Lesions, Lumps - Neurological Neurological: denies: General weakness, Focal weakness, Headache, Dizziness, Numbness, Memory problems, Pre-existing deficit, Abnormal gait, Seizures, Incoordination, Slurred speech - Psychiatric Psychiatric: denies: Depression, Suicidal, Delusions - Endocrine Endocrine: denies: Polyuria, Polyphagia - Hematologic/Lymphatic Hematologic/Lymphatic: denies: Anemia, Bruising, Blood clots Exam - Vital Signs Vital Signs: Vital Signs x48h Temp Pulse Resp BP Pulse Ox 07/13/20 16:54 70 18 134/76 H 99 07/13/20 14:47 36.5 C 84 16 127/68 98 - Physical Exam General Appearance: positive: No acute distress, Alert. negative: Lethargic Eyes Bilateral: positive: Normal inspection, PERRL, No lid inflammation ENT: positive: ENT inspection nml, No signs of dehydration. negative: Purulent nasal drainage Neck: positive: Nml inspection, Thyroid nml, Trachea midline. negative: Thyromegaly, Tracheal deviation Respiratory: positive: Chest non-tender, No respiratory distress, Breath sounds nml. negative: Wheezes, Rales, Rhonchi Cardiovascular: positive: Regular rate & rhythm, Systolic murmur, Diastolic murmur. negative: No murmur, Tachycardia, Bradycardia Peripheral Pulses: positive: 2+ Abdomen: positive: Non-tender, Nml bowel sounds, No distention. negative: Tenderness, Guarding, Rebound Back: positive: Nml inspection. negative: CVA tenderness (R), CVA tenderness (L) Skin: positive: Color nml, No rash, Warm, Dry. negative: Cyanosis, Diaphoresis, Pallor Extremities: positive: Non-tender, Nml appearance. negative: Pedal edema Neurologic/Psychiatric: positive: Oriented x3, Motor nml, Sensation nml, Mood/affect nml. negative: Weakness, Sensory loss, Facial droop, Slurred/abnml speech, Depressed mood/affect Conclusion/Plan - Problem List (1) Diverticulitis Conclusion/Plan: Patient failed outpatient treatment with antibiotics, patient still complain abdominal pain. Repeat CAT scan of abdomen still show diverticulitis and Sigmoid and descending colon wall thickening, concern neoplasm. Order antibiotics Cipro and Flagyl, clear diet and IVF (2) Bowel wall thickening Conclusion/Plan: The CAT scan show sigmoid colon diverticulitis, also concern for possible colon neoplasm, Short segments of possible bowel wall thickening and under distention are also noted in the descending colon. Patient has history of colon cancer, she did have colon resection in 1971. pt was recommended a colonoscopy in follow-up. Because the patient has abdominal pain and acute infection, surgeon suggest we would have colonoscopy after her infection control and pain is in the control. (3) Dehydration Conclusion/Plan: Patient had slightly elevated creatinine, clinically also indicated dehydration, dry mouth, Patient was already given 2 L normal saline in the ER, we will give patient 1 L with slow infusion rate, Continue laboratory and vital signs monitor (4) Heart murmur Conclusion/Plan: Patient also present heart murmur, We will check echo. Patient denies chest pain,Shortness breathing, palpation. (5) Depression Conclusion/Plan: we will resume patient home medication after confirmed - Lab Results Fish Bones: 07/14/20 05:18 07/14/20 05:18 Core Measures - Anticipated LOS I expect patient to be DC'd or transferred within 96 hours.: Yes - DVT/VTE - Prophylaxis VTE/DVT Device ordered at admit?: Yes VTE/DVT Prophylaxis med ordered at admit?: Yes
[2020-07-13] MEDS ORDERED: SODIUM CHLORIDE 0.9% 1,000 ML IV SCH ×2 (18:00)
[2020-07-13] MEDS: CIPROFLOXACIN 400 MG/200 ML 400 MG/200 ML BAG IV SCH (18:40)
[2020-07-13] MEDS: metroNIDAZOLE 500 MG/100 ML 500 MG/100 ML BAG IV SCH (18:44)
[2020-07-13 19:02] LABS: C. PNEUMONIAE- RESP PCR PANEL NOT DETECTED
--- NOTE | 2020-07-13 19:28 | XRAY Report ---
PROCEDURE: Chest 1 View X-Ray INDICATIONS: cough TECHNIQUE: One view of the chest was acquired. COMPARISON: Prior chest plain film 10/01/2019 FINDINGS: Surgical changes and devices: None. Lungs and pleura: No pleural effusions or pneumothorax. Lungs are clear. Mediastinum: Mediastinal contours appear normal. Heart size is normal. Bones and chest wall: No suspicious bony lesions. Overlying soft tissues appear unremarkable. IMPRESSION: No source of cough is found. Incidental mode is made of a tendon transfer staple at the left humeral head. Reviewed by: Bhupinder Padilla MD on 07/13/2020 7:27 PM [facility] Approved by: Bhupinder Padilla MD on 07/13/2020 7:27 PM [facility] Station ID: [id number]
[2020-07-14] MEDS: SODIUM CHLORIDE FLUSH 0.9% 10 ML SYRINGE IVP SCH ×3 (00:09→15:55)
[2020-07-14] MEDS: metroNIDAZOLE 500 MG/100 ML 500 MG/100 ML BAG IV SCH ×3 (01:27→17:35)
[2020-07-14] MEDS: CIPROFLOXACIN 400 MG/200 ML 400 MG/200 ML BAG IV SCH ×2 (05:27→17:34)
[2020-07-14 05:47] LABS: BASOPHILS % (AUTO) 0.2 %; EOSINOPHILS # (AUTO) 0.2 10^3/uL (0.0-0.7); EOSINOPHILS % (AUTO) 3.8 %; HGB - HEMOGLOBIN 11.3 g/dL (12.0-16.0); LYMPHOCYTES # (AUTO) 0.7 10^3/uL (1.5-3.5); LYMPHOCYTES % (AUTO) 13.8 %; MEAN CORPUSCULAR HGB CONC 32.2 g/dL (32.0-36.0); MEAN PLATELET VOLUME 10.6 fL (7.9-10.8); MONOCYTES # (AUTO) 0.8 10^3/uL (0.0-1.0); MONOCYTES % (AUTO) 15.6 %; NEUTROPHILS # (AUTO) 3.3 10^3/uL (1.5-6.6); NEUTROPHILS % (AUTO) 66.2 %; PLT - PLATELET COUNT 153 10^3/uL (130-450)
[2020-07-14 06:01] LABS: CALCIUM 8.9 mg/dL (8.5-10.3); MAGNESIUM 2.2 mg/dL (1.7-2.8); PHOSPHORUS 3.1 mg/dL (2.5-4.6)
[2020-07-14] MEDS: PANTOPRAZOLE 40 MG TABLET PO SCH (06:23)
[2020-07-14] MEDS: ENOXAPARIN 40 MG/0.4 ML SYRINGE SUBQ SCH (09:21)
--- NOTE | 2020-07-14 10:53 | PHARMACY PROGRESS NOTE ---
- Best Possible Medication History Admit Date and Time: 07/13/20 1732 Processed by: Pharmacy Medication History completed: Yes Patient Interview: Completed Secondary Source(s): Written medication list, Prescription bottles, Physician records (PATIENT INTERVIEWED BY TRACTOR TRA[employer]ER [employer]CH[employer]IC. PATIENT ABLE TO CONFIRM HOME MEDICATIONS) As the person ultimately responsible for medication therapy, providers are able to order a medication from an existing home medication list in [facility] via the "Reconcile Routine" prior to Confirmation of that medication by intranet support. Such practice is discouraged except when the physician, in their clinical judgm ent, deems that a medical need exists for a medication without regard to previous use.
--- NOTE | 2020-07-14 14:01 | PROVIDER PROGRESS NOTE ---
Assessment/Plan - Problem List (1) Diverticulitis Assessment/Plan: 07/14 Patient reported abdominal pain slightly better than yesterday at 11/18, pt present slight tenderness as well. We will continue intravenous antibiotics, Continue clear diet then advanced at the patient tolerated. Surgeon come to see the patient, She will postpone for the colonoscopy until patient abdominal pain is with good control. Patient agree. Patient failed outpatient treatment with antibiotics, patient still complain abdominal pain. Repeat CAT scan of abdomen still show diverticulitis and Sigmoid and descending colon wall thickening, concern neoplasm. Order antibiotics Cipro and Flagyl, clear diet and IVF (2) Bowel wall thickening Conclusion/Plan: 07/14 As above, patient colonoscopy will be postponed until pt's abdominal pain is good control, abdominal tenderness is good control. pt still present slight abdominal right lower quadrant tenderness. The CAT scan show sigmoid colon diverticulitis, also concern for possible colon neoplasm, Short segments of possible bowel wall thickening and under distention are also noted in the descending colon. Patient has history of colon cancer, she did have colon resection in 1971. pt was recommended a colonoscopy in follow-up. Because the patient has abdominal pain and acute infection, surgeon suggest we would have colonoscopy after her infection control and pain is in the control. (3) Dehydration Conclusion/Plan: 07/14 resolved. Patient had slightly elevated creatinine, clinically also indicated dehydration, dry mouth, Patient was already given 2 L normal saline in the ER, we will give patient 1 L with slow infusion rate, Continue laboratory and vital signs monitor (4) Heart murmur Conclusion/Plan: 07/14 Echo is on the pending. Patient also present heart murmur, We will check echo. Patient denies chest pain,Shortness breathing, palpation. (5) Depression Conclusion/Plan: resume Cymbalta we will resume patient home medication after confirmed - Current Meds Current Meds: Current Medications Generic Name Dose Route Start Last Admin Trade Name Freq PRN Reason Stop Dose Admin Enoxaparin Sodium 40 mg 07/14/20 09:00 07/14/20 09:21 Enoxaparin 40 Mg/0.4 Ml Syringe SUBQ 40 mg DAILY LEATHA Administration Ciprofloxacin 400 mg in 200 mls @ 200 mls/hr 07/13/20 18:00 07/14/20 06:45 Cipro 400 Mg/200 Ml IV Infused Q12H LEATHA Infusion Metronidazole 500 mg in 100 mls @ 100 mls/hr 07/13/20 18:00 07/14/20 10:37 Flagyl 500 Mg/100 Ml IV Infused Q8H LEATHA Infusion Morphine Sulfate 2 mg 07/13/20 17:33 07/14/20 02:37 Morphine 2 Mg/Ml Carpuject IVP 2 mg Q2HR PRN Administration Pain 8 to 10 Oxycodone HCl 5 mg 07/13/20 17:33 07/14/20 00:19 Oxycodone 5 Mg Tablet PO 5 mg Q4HR PRN Administration Pain 5 to 7 Pantoprazole Sodium 40 mg 07/14/20 07:00 07/14/20 06:23 Pantoprazole 40 Mg Tablet PO 40 mg QDAC LEATHA Administration Sodium Chloride 10 ml 07/14/20 01:00 07/14/20 09:22 Sodium Chloride Flush 0.9% 10 Ml Syringe IVP Not Given 0100,0900,1700 LEATHA - Lab Result Fish Bone Diagrams: 07/14/20 05:18 07/14/20 05:18 - Additional Planning My Orders: My Active Orders 07/13/20 Dinner Clear Liquid Diet [DIET] 07/13/20 17:33 Activity Orders [RC] Q2HR IO [RC] IOSHIFT Initiate Bowel Care Protocol [RC] .protocol Initiate Line Care Protocol [RC] QSHIFT Initiate Personal Care Protoco [RC] .protocol Vital Signs [RC] 0800,1600,0000 Acetaminophen [Tylenol] 650 mg PO Q4HR PRN Morphine Inj (Carpuject) [Morphine (Carpuject)] 2 mg IVP Q2HR PRN Ondansetron Inj [Zofran Inj] 4 mg IVP Q6HR PRN Sodium Chloride Flush 0.9% [Normal Saline Flush 0.9%] 10 ml IVP PRN PRN oxyCODONE [Roxicodone] 5 mg PO Q4HR PRN Code Status [OTHERS] Routine Condition of Patient [OTHERS] Routine DVT Prophylaxis [OTHERS] Routine 07/13/20 17:35 IV Insert [RC] .ONCE 07/13/20 17:36 SCDs [RC] QSHIFT 07/13/20 17:37 General Surgery Consult [CONS] Routine 07/13/20 18:00 Ciprofloxacin 400 mg/200 ml [Cipro 400 mg/200 ml] 400 mg in 200 ml IV Q12H metroNIDAZOLE 500 MG/100 ML [Flagyl 500 mg/100 ml] 500 mg in 100 ml IV Q8H 07/13/20 18:41 Code Status [OTHERS] Routine 07/14/20 01:00 Sodium Chloride Flush 0.9% [Normal Saline Flush 0.9%] 10 ml IVP 0100,0900,1700 07/14/20 07:00 Pantoprazole [Protonix] 40 mg PO QDAC 07/14/20 09:00 Enoxaparin [Lovenox] 40 mg SUBQ DAILY 07/14/20 18:42 Echo Transthoracic Complete [ECHO] Routine 07/15/20 05:00 BMP - BASIC METABOLIC PANEL [CHEM] DAILYLAB CBC - COMP BLD CT W/AUTO DIFF [HEME] DAILYLAB MAGNESIUM [CHEM] DAILYLAB PHOSPHORUS [CHEM] DAILYLAB 07/16/20 05:00 BMP - BASIC METABOLIC PANEL [CHEM] DAILYLAB CBC - COMP BLD CT W/AUTO DIFF [HEME] DAILYLAB 07/17/20 05:00 BMP - BASIC METABOLIC PANEL [CHEM] DAILYLAB CBC - COMP BLD CT W/AUTO DIFF [HEME] DAILYLAB Subjective - Subjective Patient Reports: Feeling Better Objective Vital Signs: Vital Signs - 24 hr 07/13/20 07/13/20 07/13/20 14:47 16:54 18:00 Temperature 36.5 C 37.0 C Heart Rate 84 70 72 Heart Rate [ Brachial] Respiratory 16 18 19 Rate Blood Pressure 127/68 134/76 H 122/80 Blood Pressure [Left Brachial artery] O2 Saturation 98 99 98 07/13/20 07/13/20 07/14/20 19:01 21:09 00:13 Temperature 36.6 C 37.0 C 36.6 C Heart Rate Heart Rate [ 78 65 80 Brachial] Respiratory 24 16 16 Rate Blood Pressure Blood Pressure 143/68 H 109/45 L 130/53 L [Left Brachial artery] O2 Saturation 100 100 100 07/14/20 08:00 Temperature 36.5 C Heart Rate Heart Rate [ 68 Brachial] Respiratory 17 Rate Blood Pressure Blood Pressure 116/53 L [Left Brachial artery] O2 Saturation 99 Oxygen O2 Source Room air I&O (Last 24 Hrs): Intake and Output Totals x24h 12/02/20 12/03/20 12/04/20 23:59 23:59 23:59 Intake Total 1833 2350.00 Output Total 600 Balance 1833 1750.00 General: Alert, Oriented x3, Cooperative, No acute distress HEENT: Atraumatic Neck: Supple Lymphatic: no adenopathy Neuro: Alert, Non Focal, Oriented Times 3 Cardiovascular: Regular rate, Normal S1, Normal S2 Respiratory: Chest non-tender, No respiratory distress, Breath sounds nml Abdomen: Normal bowel sounds, Soft Extremities: Normal pulses - Results Results: Laboratory Results WBC 5.0 x10^3/uL (4.8-10.8) 07/14/20 05:18 RBC 3.90 10^6/uL (4.20-5.40) L 07/14/20 05:18 Hgb 11.3 g/dL (12.0-16.0) L 07/14/20 05:18 Hct 35.1 % (37.0-47.0) L 07/14/20 05:18 MCV 90.0 fL (81.0-99.0) 07/14/20 05:18 MCH 29.0 pg (27.0-31.0) 07/14/20 05:18 MCHC 32.2 g/dL (32.0-36.0) 07/14/20 05:18 RDW 13.0 % (12.0-15.0) 07/14/20 05:18 Plt Count 153 10^3/uL (130-450) 07/14/20 05:18 MPV 10.6 fL (7.9-10.8) 07/14/20 05:18 Neut # (Auto) 3.3 10^3/uL (1.5-6.6) 07/14/20 05:18 Lymph # (Auto) 0.7 10^3/uL (1.5-3.5) L 07/14/20 05:18 [place] # (Auto) 0.8 10^3/uL (0.0-1.0) 07/14/20 05:18 Eos # (Auto) 0.2 10^3/uL (0.0-0.7) 07/14/20 05:18 Baso # (Auto) 0.0 10^3/uL (0.0-0.1) 07/14/20 05:18 Absolute Nucleated RBC 0.00 x10^3/uL 07/14/20 05:18 Nucleated RBC % 0.0 /100WBC 07/14/20 05:18 Sodium 141 mmol/L (135-145) 07/14/20 05:18 Potassium 3.6 mmol/L (3.5-5.0) 07/14/20 05:18 Chloride 110 mmol/L (101-111) 07/14/20 05:18 Carbon Dioxide 22 mmol/L (21-32) 07/14/20 05:18 Anion Gap 9.0 (6-13) 07/14/20 05:18 BUN 9 mg/dL (6-20) 07/14/20 05:18 Creatinine 1.0 mg/dL (0.4-1.0) 07/14/20 05:18 Estimated GFR (MDRD) 52 (>89) L 07/14/20 05:18 Glucose 92 mg/dL (70-100) 07/14/20 05:18 Lactic Acid 1.1 mmol/L (0.5-2.2) 07/13/20 15:24 Calcium 8.9 mg/dL (8.5-10.3) 07/14/20 05:18 Phosphorus 3.1 mg/dL (2.5-4.6) 07/14/20 05:18 Magnesium 2.2 mg/dL (1.7-2.8) 07/14/20 05:18 Total Bilirubin 0.8 mg/dL (0.2-1.0) 07/13/20 15:11 AST 26 IU/L (10-42) 07/13/20 15:11 ALT 28 IU/L (10-60) 07/13/20 15:11 Alkaline Phosphatase 66 IU/L (42-121) 07/13/20 15:11 Total Protein 7.5 g/dL (6.7-8.2) 07/13/20 15:11 Albumin 4.0 g/dL (3.2-5.5) 07/13/20 15:11 Globulin 3.5 g/dL (2.1-4.2) 07/13/20 15:11 Albumin/Globulin Ratio 1.1 (1.0-2.2) 07/13/20 15:11 Lipase 34 U/L (22-51) 07/13/20 15:11 Carcinoembryonic Ag 5.1 ng/mL 07/13/20 16:30 Urine Color YELLOW 07/13/20 16:08 Urine Clarity CLEAR (CLEAR) 07/13/20 16:08 Urine pH 6.0 PH (5.0-7.5) 07/13/20 16:08 Ur Specific [place] 1.025 (1.002-1.030) 07/13/20 16:08 Urine Protein NEGATIVE mg/dL (NEGATIVE) 07/13/20 16:08 Urine Glucose (UA) NEGATIVE mg/dL (NEGATIVE) 07/13/20 16:08 Urine Ketones 15 mg/dL (NEGATIVE) H 07/13/20 16:08 Urine Occult Blood NEGATIVE (NEGATIVE) 07/13/20 16:08 Urine Nitrite NEGATIVE (NEGATIVE) 07/13/20 16:08 Urine Bilirubin NEGATIVE (NEGATIVE) 07/13/20 16:08 Urine Urobilinogen 0.2 (NORMAL) E.U./dL (NORMAL) 07/13/20 16:08 Ur Leukocyte Esterase NEGATIVE (NEGATIVE) 07/13/20 16:08 Ur Microscopic Review NOT INDICATED 07/13/20 16:08 Urine Culture Comments NOT INDICATED 07/13/20 16:08 Nasal Adenovirus (PCR) NOT DETECTED 07/13/20 17:44 Nasal B. parapertussis DNA (PCR) NOT DETECTED 07/13/20 17:44 Nasal Coronavir 229E PCR NOT DETECTED 07/13/20 17:44 Nasal Coronavir HKU1 PCR NOT DETECTED 07/13/20 17:44 Nasal Coronavir NL63 PCR NOT DETECTED 07/13/20 17:44 Nasal Coronavir OC43 PCR NOT DETECTED 07/13/20 17:44 Nasal Enterovir/Rhinovir PCR NOT DETECTED 07/13/20 17:44 Nasal Influenza B PCR NOT DETECTED 07/13/20 17:44 Nasal Influenza A PCR NOT DETECTED 07/13/20 17:44 Nasal Parainfluen 1 PCR NOT DETECTED 07/13/20 17:44 Nasal Parainfluen 2 PCR NOT DETECTED 07/13/20 17:44 Nasal Parainfluen 3 PCR NOT DETECTED 07/13/20 17:44 Nasal Parainfluen 4 PCR NOT DETECTED 07/13/20 17:44 Nasal RSV (PCR) NOT DETECTED 07/13/20 17:44 Nasal B.pertussis DNA PCR NOT DETECTED 07/13/20 17:44 Nasal C.pneumoniae (PCR) NOT DETECTED 07/13/20 17:44 Esvin Human Metapneumo PCR NOT DETECTED 07/13/20 17:44 Nasal M.pneumoniae (PCR) NOT DETECTED 07/13/20 17:44 Nasal SARS-CoV-2 (PCR) NOT DETECTED 07/13/20 17:44 - Procedures Procedures: Procedures CATARAC PHACOEMULS/ASPIR (11/24/13) EXPLOR TEND SHEATH-HAND (03/20/15) INSERT LENS AT CATAR EXT (11/24/13) ABX Reporting Has patient been on IV antibiotics over the past 48 hours?: Yes Current Medications - Current Medications Current Medications: Active Medications Acetaminophen (Acetaminophen 325 Mg Tablet) 650 mg PO Q4HR PRN PRN Reason: Pain 1 to 4 Duloxetine HCl (Duloxetine 30 Mg Capsule) 60 mg PO DAILY [facility] Enoxaparin Sodium (Enoxaparin 40 Mg/0.4 Ml Syringe) 40 mg SUBQ DAILY [facility] Last Admin: 07/14/20 09:21 Dose: 40 mg Documented by: Ciprofloxacin (Cipro 400 Mg/200 Ml) 400 mg in 200 mls @ 200 mls/hr IV Q12H [facility] Last Infusion: 07/14/20 06:45 Dose: Infused Documented by: Metronidazole (Flagyl 500 Mg/100 Ml) 500 mg in 100 mls @ 100 mls/hr IV Q8H [facility] Last Infusion: 07/14/20 10:37 Dose: Infused Documented by: Morphine Sulfate (Morphine 2 Mg/Ml Carpuject) 2 mg IVP Q2HR PRN PRN Reason: Pain 8 to 10 Last Admin: 07/14/20 02:37 Dose: 2 mg Documented by: Non-Formulary Medication (Multivitamin [Multivitamins]) 1 each PO DAILY [facility] Ondansetron HCl (Ondansetron 4 Mg/2 Ml Vial) 4 mg IVP Q6HR PRN PRN Reason: Nausea / Vomiting Oxycodone HCl (Oxycodone 5 Mg Tablet) 5 mg PO Q4HR PRN PRN Reason: Pain 5 to 7 Last Admin: 07/14/20 00:19 Dose: 5 mg Documented by: Pantoprazole Sodium (Pantoprazole 40 Mg Tablet) 40 mg PO QDAC [facility] Last Admin: 07/14/20 06:23 Dose: 40 mg Documented by: Sodium Chloride (Sodium Chloride Flush 0.9% 10 Ml Syringe) 10 ml IVP PRN PRN PRN Reason: NEEDED PER PROVIDER ORDERS Sodium Chloride (Sodium Chloride Flush 0.9% 10 Ml Syringe) 10 ml IVP 0100,0900,1700 [facility] Last Admin: 07/14/20 09:22 Dose: Not Given Documented by: DULoxetine [Cymbalta] 60 mg PO DAILY 10/16/13 Multivitamin [Multivitamins] 1 each PO DAILY 03/17/15
--- NOTE | 2020-07-14 17:40 | CONSULTATION NOTE ---
Referring Provider Name of Referring Provider:: Anne Consult Date: 07/14/20 Chief Complaint - Chief Complaint Chief Complaint: Abdominal pain History of Present Illness - Admitted From Admitted From:: ED - History Obtained From Exam Limitations: None - History of Present Illness HPI Comment/Other: Jumana is a delightful 89 year old lady who reports fairly constant abdominal pain for the past 2 weeks. She saw her PCP and was evaluated with CT which revealed sigmoid diverticulitis and luminal narrowing raising the question of neoplasm. She took Augmentin for 2 days at home but didn't feel she was improving so presented to the ED. She denies any fever. She reports large amounts of flatus and some liquid stool. She was admitted to the Hospitalist service and started on Cipro and Flagyl. She reports that her pain is "not to bad" right now but doesn't endorse the idea of improvement since admission. She has not seen any blood per rectum. She reports her weight has been stable. 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 She is living at [facility], she had her 2 children, 1 son and 1 daughter Meds/Allgy - Home Medications Home Medications: Ambulatory Orders Medication Instructions Recorded Confirmed DULoxetine [Cymbalta] 60 mg PO DAILY 10/16/13 07/14/20 Multivitamin [Multivitamins] 1 each PO DAILY 03/17/15 07/14/20 - Allergies Allergies/Adverse Reactions: Allergies Allergy/AdvReac Type Severity Reaction Status Date / Time adhesive AdvReac Severe Skin comes Verified 07/13/20 14:54 off Review of Systems - Constitutional Constitutional: reports: Fatigue. denies: Fever, Chills - Cardiovascular Cariovascular: reports: Lightheadedness. denies: Irregular heart rate, Chest pain - Respiratory Respiratory: denies: Cough, Wheezing - Gastrointestinal Gastrointestinal: reports: Abdominal pain, Diarrhea, Bloating. denies: Abdominal distention, Constipation, Change in bowel habits, Rectal bleeding, Black stools, Bloody stools, Nausea, Vomiting - Genitourinary Genitourinary: denies: Dysuria Exam - Vital Signs Reviewed Vital Signs: Yes Vital Signs: Vital Signs x48h Temp Pulse Resp BP Pulse Ox 07/14/20 16:00 36.7 C 73 16 130/56 L 100 - Physical Exam General Appearance: positive: No acute distress, Alert, Other (Appears com fortable. Non-toxic) Eyes Bilateral: positive: Normal inspection, PERRL ENT: positive: ENT inspection nml, Pharynx nml Neck: positive: Nml inspection Respiratory: positive: Chest non-tender, No respiratory distress, Breath sounds nml Cardiovascular: positive: Regular rate & rhythm Abdomen: positive: Nml bowel sounds, No distention, Tenderness, Guarding, Rebound, Other (Very tender to palpation in the suprapubic region to the right of the midline. No papable mass.) Extremities: positive: Non-tender Neurologic/Psychiatric: positive: Oriented x3 Conclusion and Plan - Lab Results Laboratory Results 07/14/20 05:18: Sodium 141, Potassium 3.6, Chloride 110, Carbon Dioxide 22, Anion Gap 9.0, BUN 9, Creatinine 1.0, Estimated GFR (MDRD) 52 L, Glucose 92, Calcium 8.9, Phosphorus 3.1, Magnesium 2.2 07/14/20 05:18: WBC 5.0, RBC 3.90 L, Hgb 11.3 L, Hct 35.1 L, MCV 90.0, MCH 29.0, MCHC 32.2, RDW 13.0, Plt Count 153, MPV 10.6, Neut # (Auto) 3.3, Lymph # (Auto) 0.7 L, [place] # (Auto) 0.8, Eos # (Auto) 0.2, Baso # (Auto) 0.0, Absolute Nucleated RBC 0.00, Nucleated RBC % 0.0 07/13/20 17:44: Nasal Adenovirus (PCR) NOT DETECTED, Nasal B. parapertussis DNA (PCR) NOT DETECTED, Nasal Coronavir 229E PCR NOT DETECTED, Nasal Coronavir HKU1 PCR NOT DETECTED, Nasal Coronavir NL63 PCR NOT DETECTED, Nasal Coronavir OC43 PCR NOT DETECTED, Nasal Enterovir/Rhinovir PCR NOT DETECTED, Nasal Influenza B PCR NOT DETECTED, Nasal Influenza A PCR NOT DETECTED, Nasal Parainfluen 1 PCR NOT DETECTED, Nasal Parainfluen 2 PCR NOT DETECTED, Nasal Parainfluen 3 PCR NOT DETECTED, Nasal Parainfluen 4 PCR NOT DETECTED, Nasal RSV (PCR) NOT DETECTED, Nasal B.pertussis DNA PCR NOT DETECTED, Nasal C.pneumoniae (PCR) NOT DETECTED, Esvin Human Metapneumo PCR NOT DETECTED, Nasal M.pneumoniae (PCR) NOT DETECTED, Nasal SARS-CoV-2 (PCR) NOT DETECTED 07/13/20 16:30: Carcinoembryonic Ag 5.1 07/13/20 16:08: Urine Color YELLOW, Urine Clarity CLEAR, Urine pH 6.0, Ur Specific [place] 1.025, Urine Protein NEGATIVE, Urine Glucose (UA) NEGATIVE, Urine Ketones 15 H, Urine Occult Blood NEGATIVE, Urine Nitrite NEGATIVE, Urine Bilirubin NEGATIVE, Urine Urobilinogen 0.2 (NORMAL), Ur Leukocyte Esterase NEGATIVE, Ur Microscopic Review NOT INDICATED, Urine Culture Comments NOT INDICATED 07/13/20 15:24: Lactic Acid 1.1 07/13/20 15:11: Sodium 139, Potassium 3.8, Chloride 101, Carbon Dioxide 25, Anion Gap 13.0, BUN 14, Creatinine 1.3 H, Estimated GFR (MDRD) 39 L, Glucose 113 H, Calcium 10.5 H, Total Bilirubin 0.8, AST 26, ALT 28, Alkaline Phosphatase 66, Total Protein 7.5, Albumin 4.0, Globulin 3.5, Albumin/Globulin Ratio 1.1, Lipase 34 07/13/20 15:11: WBC 6.8, RBC 4.83, Hgb 14.1, Hct 43.2, MCV 89.4, MCH 29.2, MCHC 32.6, RDW 13.1, Plt Count 222, MPV 10.3, Neut # (Auto) 4.6, Lymph # (Auto) 1.0 L, [place] # (Auto) 0.8, Eos # (Auto) 0.3, Baso # (Auto) 0.0, Absolute Nucleated RBC 0.00, Nucleated RBC % 0.0 - Diagnostic Imaging Results Diagnostic Imaging Results Comments: Evidence of historic right colon resection (1971). No adenopathy to suggest malignancy or neoplastic process. Thickened sigmoid colon with a second abnormal segment near the splenic flexure. - Diagnosis Diagnosis: Acute diverticulitis in the setting of a sherwin lady with multiple medical challenges and a remote history of colon cancer. - Plan Plan: A bit of a puzzle. A more significant leukocytosis would more strongly support the diagnosis of simple diverticulitis. There is no evidence of any metastatic lesions in the liver and no adenopathy to support the diagnosis of malignancy. Risk of colonic perforation is significantly increased in the setting of acute diverticulitis. I would recommend continued antibiotic therapy with daily reassessment and consideration of colonoscopy. 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 If her pain does not improve adequately, we might consider flexible sigmoidoscopy for diagnostic purposes. She will eventually need a full scope but it may help to have a diagnostic place to start. Will follow and reassess daily.
[2020-07-15] MEDS: SODIUM CHLORIDE FLUSH 0.9% 10 ML SYRINGE IVP SCH ×3 (00:20→17:34)
[2020-07-15] MEDS: metroNIDAZOLE 500 MG/100 ML 500 MG/100 ML BAG IV SCH ×3 (01:51→18:38)
[2020-07-15 05:13] LABS: BASOPHILS % (AUTO) 0.3 %; EOSINOPHILS # (AUTO) 0.3 10^3/uL (0.0-0.7); EOSINOPHILS % (AUTO) 7.3 %; HGB - HEMOGLOBIN 11.2 g/dL (12.0-16.0); LYMPHOCYTES # (AUTO) 0.7 10^3/uL (1.5-3.5); LYMPHOCYTES % (AUTO) 19.9 %; MEAN CORPUSCULAR HEMOGLOBIN 29.1 pg (27.0-31.0); MEAN CORPUSCULAR HGB CONC 32.3 g/dL (32.0-36.0); MEAN CORPUSCULAR VOLUME 90.1 fL (81.0-99.0); MEAN PLATELET VOLUME 10.7 fL (7.9-10.8); MONOCYTES # (AUTO) 0.6 10^3/uL (0.0-1.0); MONOCYTES % (AUTO) 14.8 %; NEUTROPHILS # (AUTO) 2.1 10^3/uL (1.5-6.6); NEUTROPHILS % (AUTO) 56.9 %; PLT - PLATELET COUNT 152 10^3/uL (130-450); RED BLOOD COUNT 3.85 10^6/uL (4.20-5.40); RED CELL DISTRIBUTION WIDTH 13.3 % (12.0-15.0); WHITE BLOOD COUNT 3.7 x10^3/uL (4.8-10.8)
[2020-07-15 05:25] LABS: CALCIUM 9.2 mg/dL (8.5-10.3)
[2020-07-15] MEDS: CIPROFLOXACIN 400 MG/200 ML 400 MG/200 ML BAG IV SCH ×2 (06:00→17:34)
[2020-07-15] MEDS: PANTOPRAZOLE 40 MG TABLET PO SCH (06:58)
[2020-07-15] MEDS: DULoxetine 30 MG CAPSULE PO SCH (09:29)
[2020-07-15] MEDS: MULTIVITAMIN TABLET PO SCH (09:29)
[2020-07-15] MEDS: ENOXAPARIN 40 MG/0.4 ML SYRINGE SUBQ SCH (09:30)
[2020-07-15] MEDS: D5NS W/20 MEQ KCL 1,000 ML IV SCH (11:17)
[2020-07-15] MEDS: POTASSIUM CHLOR 10 MEQ/100 ML 10 MEQ/100 ML BAG IV SCH ×2 (11:19→12:37)
--- NOTE | 2020-07-15 11:56 | PROVIDER PROGRESS NOTE ---
Subjective - General Admit Date: 07/13/20 Procedure Performed: Hospital Day #2 Diverticulitis - Review of Systems General: positive: No symptoms HEENT: positive: No symptoms Pulmonary: positive: No symptoms Cardiovascular: positive: No symptoms Gastrointestinal: positive: Other (One sharp pain this morning after breakfast. None now.) Objective - Patient Data Vital Signs: Vital Signs x48h Temp Pulse Resp BP Pulse Ox 07/15/20 08:00 36.6 C 73 16 115/62 100 Weight: Weight 07/13/20 07/14/20 07/15/20 23:59 23:59 23:59 Weight (kg) 57.969 kg Intake & Output: Intake and Output Totals x24h 07/13/20 07/14/20 07/15/20 23:59 23:59 23:59 Intake Total 1833 2890.00 640 Output Total 900 300 Balance 1833 1990.00 340 - Lab Results Lab Results: 07/15/20 04:27 07/15/20 04:27 Other Lab Results: Lab Results x24hrs 07/15/20 07/15/20 Range/Units 04:27 04:27 WBC 3.7 L (4.8-10.8) x10^3/uL RBC 3.85 L (4.20-5.40) 10^6/uL Hgb 11.2 L (12.0-16.0) g/dL Hct 34.7 L (37.0-47.0) % MCV 90.1 (81.0-99.0) fL MCH 29.1 (27.0-31.0) pg MCHC 32.3 (32.0-36.0) g/dL RDW 13.3 (12.0-15.0) % Plt Count 152 (130-450) 10^3/uL MPV 10.7 (7.9-10.8) fL Neut # (Auto) 2.1 (1.5-6.6) 10^3/uL Lymph # (Auto) 0.7 L (1.5-3.5) 10^3/uL [place] # (Auto) 0.6 (0.0-1.0) 10^3/uL Eos # (Auto) 0.3 (0.0-0.7) 10^3/uL Baso # (Auto) 0.0 (0.0-0.1) 10^3/uL Absolute Nucleated RBC 0.00 x10^3/uL Nucleated RBC % 0.0 /100WBC Sodium 140 (135-145) mmol/L Potassium 3.3 L (3.5-5.0) mmol/L Chloride 112 H (101-111) mmol/L Carbon Dioxide 24 (21-32) mmol/L Anion Gap 4.0 L (6-13) BUN 6 (6-20) mg/dL Creatinine 1.0 (0.4-1.0) mg/dL Estimated GFR (MDRD) 52 L (>89) Glucose 106 H (70-100) mg/dL Calcium 9.2 (8.5-10.3) mg/dL Phosphorus 3.0 (2.5-4.6) mg/dL Magnesium 2.0 (1.7-2.8) mg/dL - Current Medications Current Medications: Current Medications Generic Name Dose Route Start Last Admin Trade Name Freq PRN Reason Stop Dose Admin Acetaminophen 650 mg 07/13/20 17:33 07/14/20 15:54 Acetaminophen 325 Mg Tablet PO 650 mg Q4HR PRN Administration Pain 1 to 4 Duloxetine HCl 60 mg 07/15/20 09:00 07/15/20 09:29 Duloxetine 30 Mg Capsule PO 60 mg DAILY LEATHA Administration Enoxaparin Sodium 40 mg 07/14/20 09:00 07/15/20 09:30 Enoxaparin 40 Mg/0.4 Ml Syringe SUBQ 40 mg DAILY LEATHA Administration Ciprofloxacin 400 mg in 200 mls @ 200 mls/hr 07/13/20 18:00 07/15/20 08:31 Cipro 400 Mg/200 Ml IV Infused Q12H LEATHA Infusion Metronidazole 500 mg in 100 mls @ 100 mls/hr 07/13/20 18:00 07/15/20 10:57 Flagyl 500 Mg/100 Ml IV Infused Q8H LEATHA Infusion Potassium Chloride/Dextrose/Sod Cl 1,000 mls @ 83.333 mls/hr 07/15/20 10:00 07/15/20 11:17 IV 83.333 mls/hr .Q12H LEATHA Administration Potassium Chloride 10 meq in 100 mls @ 100 mls/hr 07/15/20 10:00 07/15/20 11:19 Potassium Chloride IV 07/15/20 11:59 100 mls/hr Q1H LEATHA Administration Morphine Sulfate 2 mg 07/13/20 17:33 07/14/20 02:37 Morphine 2 Mg/Ml Carpuject IVP 2 mg Q2HR PRN Administration Pain 8 to 10 Multivitamins 1 tab 07/15/20 09:00 07/15/20 09:29 Multivitamin Tablet PO 1 tab DAILY LEATHA Administration Oxycodone HCl 5 mg 07/13/20 17:33 07/14/20 00:19 Oxycodone 5 Mg Tablet PO 5 mg Q4HR PRN Administration Pain 5 to 7 Pantoprazole Sodium 40 mg 07/14/20 07:00 07/15/20 06:58 Pantoprazole 40 Mg Tablet PO Not Given QDAC LEATHA Sodium Chloride 10 ml 07/14/20 01:00 07/15/20 00:20 Sodium Chloride Flush 0.9% 10 Ml Syringe IVP 10 ml 0100,0900,1700 LEATHA Administration - Physical Exam Cardiovascular: positive: Other Abdomen: positive: Nml bowel sounds, No distention, Tenderness Impression/Plan - Problem List Problem List: 1. Clinically much improved in the last 24 hours. I would recommend continuing current antibiotic. Could change to oral in the AM if she continues to do well. 2. Advance to regular diet 3. Follow up with me in 2 weeks after discharge. Will plan for colonoscopy in 6 weeks.
--- NOTE | 2020-07-15 13:23 | PROVIDER PROGRESS NOTE ---
Assessment/Plan - Problem List (1) Diverticulitis Assessment/Plan: This patient failed outpatient oral Augmentin treatment which she took for 3 days. Repeat CAT scan of abdomen still show diverticulitis and also sigmoid and descending colon wall thickening, concern for neoplasm IV antibiotics here with Cipro and Flagyl and she is slightly improved. General surgery consult appreciated, recommendations were to continue with IV antibiotics and will advance the diet to soft, low fiber. Possible discharge tomorrow on oral antibiotics. (2) Bowel wall thickening Assessment/Plan: There is a stricture in the colon, this is suspicious for cancer however there are no lymphadenopathy or other signs of cancer and this may be thickening from chronic diverticulitis. No flex sig or colonoscopy is planned now, as per the note of the general surgeon, Dr. Sandoval, today. Will advance her diet slowly and plan for this patient to see Dr. Juarez in 6 weeks, as Dr. Sandoval recommended in today's note. (3) Dehydration Assessment/Plan: The patient was clinically dehydrated on presentation and slightle elevated creat, she got 2 L in the ER then 1 L of fluids overnight. She still has liquidy diarrhea. Will resume IV maintenance hydration, until we can see if her oral intake is adequate. Follow electrolytes and magnesium daily (4) Hypokalemia due to excessive gastrointestinal loss of potassium Assessment/Plan: Will replace with K riders and also a maintenance fluid containing K Follow electrolytes daily (5) Heart murmur Assessment/Plan: The Echo was done and showed normal LV and RV contractility, and only mild tricuspid regurgitation, mildly increased PA pressure of 39 mmHg (6) Depression Assessment/Plan: We resumed patient home medication Cymbalta - Current Meds Current Meds: Current Medications Generic Name Dose Route Start Last Admin Trade Name Freq PRN Reason Stop Dose Admin Acetaminophen 650 mg 07/13/20 17:33 07/14/20 15:54 Acetaminophen 325 Mg Tablet PO 650 mg Q4HR PRN Administration Pain 1 to 4 Duloxetine HCl 60 mg 07/15/20 09:00 07/15/20 09:29 Duloxetine 30 Mg Capsule PO 60 mg DAILY LEATHA Administration Enoxaparin Sodium 40 mg 07/14/20 09:00 07/15/20 09:30 Enoxaparin 40 Mg/0.4 Ml Syringe SUBQ 40 mg DAILY LEATHA Administration Ciprofloxacin 400 mg in 200 mls @ 200 mls/hr 07/13/20 18:00 07/15/20 08:31 Cipro 400 Mg/200 Ml IV Infused Q12H LEATHA Infusion Metronidazole 500 mg in 100 mls @ 100 mls/hr 07/13/20 18:00 07/15/20 10:57 Flagyl 500 Mg/100 Ml IV Infused Q8H LEATHA Infusion Potassium Chloride/Dextrose/Sod Cl 1,000 mls @ 83.333 mls/hr 07/15/20 10:00 07/15/20 11:17 IV 83.333 mls/hr .Q12H LEATHA Administration Morphine Sulfate 2 mg 07/13/20 17:33 07/14/20 02:37 Morphine 2 Mg/Ml Carpuject IVP 2 mg Q2HR PRN Administration Pain 8 to 10 Multivitamins 1 tab 07/15/20 09:00 07/15/20 09:29 Multivitamin Tablet PO 1 tab DAILY LEATHA Administration Oxycodone HCl 5 mg 07/13/20 17:33 07/14/20 00:19 Oxycodone 5 Mg Tablet PO 5 mg Q4HR PRN Administration Pain 5 to 7 Pantoprazole Sodium 40 mg 07/14/20 07:00 07/15/20 06:58 Pantoprazole 40 Mg Tablet PO Not Given QDAC LEATHA Sodium Chloride 10 ml 07/14/20 01:00 07/15/20 00:20 Sodium Chloride Flush 0.9% 10 Ml Syringe IVP 10 ml 0100,0900,1700 LEATHA Administration - Lab Result Fish Bone Diagrams: 07/15/20 04:27 07/15/20 04:27 - Additional Planning My Orders: My Active Orders 07/15/20 10:00 D5ns W/20 Meq KCl 1,000 ml IV 83.333 mls/hr Subjective - Subjective Patient Reports: Feeling Better, Resting Comfortably Nursing Reports: Other (She had 1 sharp episode of abdominal pain following a clear liquid diet for breakfast. Had bread for lunch and this caused no pain afterward) Objective Vital Signs: Vital Signs - 24 hr 07/14/20 07/15/20 07/15/20 16:00 00:18 08:00 Temperature 36.7 C 36.6 C 36.6 C Heart Rate [ 73 66 73 Brachial] Respiratory 16 16 16 Rate Blood Pressure 130/56 L 102/43 L 115/62 [Left Brachial artery] O2 Saturation 100 99 100 Oxygen O2 Source Room air I&O (Last 24 Hrs): Intake and Output Totals x24h 07/13/20 07/14/20 07/15/20 23:59 23:59 23:59 Intake Total 1833 2890.00 980 Output Total 900 300 Balance 1833 1990.00 680 General: Alert HEENT: EOMI, Mucous membr. moist/pink Neck: Supple, No JVD Neuro: Alert, Non Focal Cardiovascular: Regular rate, No murmurs Respiratory: No respiratory distress, Breath sounds nml Abdomen: Normal bowel sounds, Soft, No tenderness Extremities: No edema - Results Results: Laboratory Results WBC 3.7 x10^3/uL (4.8-10.8) L 07/15/20 04:27 RBC 3.85 10^6/uL (4.20-5.40) L 07/15/20 04:27 Hgb 11.2 g/dL (12.0-16.0) L 07/15/20 04:27 Hct 34.7 % (37.0-47.0) L 07/15/20 04:27 MCV 90.1 fL (81.0-99.0) 07/15/20 04:27 MCH 29.1 pg (27.0-31.0) 07/15/20 04:27 MCHC 32.3 g/dL (32.0-36.0) 07/15/20 04:27 RDW 13.3 % (12.0-15.0) 07/15/20 04:27 Plt Count 152 10^3/uL (130-450) 07/15/20 04:27 MPV 10.7 fL (7.9-10.8) 07/15/20 04:27 Neut # (Auto) 2.1 10^3/uL (1.5-6.6) 07/15/20 04:27 Lymph # (Auto) 0.7 10^3/uL (1.5-3.5) L 07/15/20 04:27 [place] # (Auto) 0.6 10^3/uL (0.0-1.0) 07/15/20 04:27 Eos # (Auto) 0.3 10^3/uL (0.0-0.7) 07/15/20 04:27 Baso # (Auto) 0.0 10^3/uL (0.0-0.1) 07/15/20 04:27 Absolute Nucleated RBC 0.00 x10^3/uL 07/15/20 04:27 Nucleated RBC % 0.0 /100WBC 07/15/20 04:27 Sodium 140 mmol/L (135-145) 07/15/20 04:27 Potassium 3.3 mmol/L (3.5-5.0) L 07/15/20 04:27 Chloride 112 mmol/L (101-111) H 07/15/20 04:27 Carbon Dioxide 24 mmol/L (21-32) 07/15/20 04:27 Anion Gap 4.0 (6-13) L 07/15/20 04:27 BUN 6 mg/dL (6-20) 07/15/20 04:27 Creatinine 1.0 mg/dL (0.4-1.0) 07/15/20 04:27 Estimated GFR (MDRD) 52 (>89) L 07/15/20 04:27 Glucose 106 mg/dL (70-100) H 07/15/20 04:27 Lactic Acid 1.1 mmol/L (0.5-2.2) 07/13/20 15:24 Calcium 9.2 mg/dL (8.5-10.3) 07/15/20 04:27 Phosphorus 3.0 mg/dL (2.5-4.6) 07/15/20 04:27 Magnesium 2.0 mg/dL (1.7-2.8) 07/15/20 04:27 Total Bilirubin 0.8 mg/dL (0.2-1.0) 07/13/20 15:11 AST 26 IU/L (10-42) 07/13/20 15:11 ALT 28 IU/L (10-60) 07/13/20 15:11 Alkaline Phosphatase 66 IU/L (42-121) 07/13/20 15:11 Total Protein 7.5 g/dL (6.7-8.2) 07/13/20 15:11 Albumin 4.0 g/dL (3.2-5.5) 07/13/20 15:11 Globulin 3.5 g/dL (2.1-4.2) 07/13/20 15:11 Albumin/Globulin Ratio 1.1 (1.0-2.2) 07/13/20 15:11 Lipase 34 U/L (22-51) 07/13/20 15:11 Carcinoembryonic Ag 5.1 ng/mL 07/13/20 16:30 Urine Color YELLOW 07/13/20 16:08 Urine Clarity CLEAR (CLEAR) 07/13/20 16:08 Urine pH 6.0 PH (5.0-7.5) 07/13/20 16:08 Ur Specific [place] 1.025 (1.002-1.030) 07/13/20 16:08 Urine Protein NEGATIVE mg/dL (NEGATIVE) 07/13/20 16:08 Urine Glucose (UA) NEGATIVE mg/dL (NEGATIVE) 07/13/20 16:08 Urine Ketones 15 mg/dL (NEGATIVE) H 07/13/20 16:08 Urine Occult Blood NEGATIVE (NEGATIVE) 07/13/20 16:08 Urine Nitrite NEGATIVE (NEGATIVE) 07/13/20 16:08 Urine Bilirubin NEGATIVE (NEGATIVE) 07/13/20 16:08 Urine Urobilinogen 0.2 (NORMAL) E.U./dL (NORMAL) 07/13/20 16:08 Ur Leukocyte Esterase NEGATIVE (NEGATIVE) 07/13/20 16:08 Ur Microscopic Review NOT INDICATED 07/13/20 16:08 Urine Culture Comments NOT INDICATED 07/13/20 16:08 Nasal Adenovirus (PCR) NOT DETECTED 07/13/20 17:44 Nasal B. parapertussis DNA (PCR) NOT DETECTED 07/13/20 17:44 Nasal Coronavir 229E PCR NOT DETECTED 07/13/20 17:44 Nasal Coronavir HKU1 PCR NOT DETECTED 07/13/20 17:44 Nasal Coronavir NL63 PCR NOT DETECTED 07/13/20 17:44 Nasal Coronavir OC43 PCR NOT DETECTED 07/13/20 17:44 Nasal Enterovir/Rhinovir PCR NOT DETECTED 07/13/20 17:44 Nasal Influenza B PCR NOT DETECTED 07/13/20 17:44 Nasal Influenza A PCR NOT DETECTED 07/13/20 17:44 Nasal Parainfluen 1 PCR NOT DETECTED 07/13/20 17:44 Nasal Parainfluen 2 PCR NOT DETECTED 07/13/20 17:44 Nasal Parainfluen 3 PCR NOT DETECTED 07/13/20 17:44 Nasal Parainfluen 4 PCR NOT DETECTED 07/13/20 17:44 Nasal RSV (PCR) NOT DETECTED 07/13/20 17:44 Nasal B.pertussis DNA PCR NOT DETECTED 07/13/20 17:44 Nasal C.pneumoniae (PCR) NOT DETECTED 07/13/20 17:44 Esvin Human Metapneumo PCR NOT DETECTED 07/13/20 17:44 Nasal M.pneumoniae (PCR) NOT DETECTED 07/13/20 17:44 Nasal SARS-CoV-2 (PCR) NOT DETECTED 07/13/20 17:44 - Procedures Procedures: Procedures CATARAC PHACOEMULS/ASPIR (11/24/13) EXPLOR TEND SHEATH-HAND (03/20/15) INSERT LENS AT CATAR EXT (11/24/13)
--- NOTE | 2020-07-15 16:08 | Discharge Plan ---
Discharge Plan Problem Reviewed?: Yes Disposition: Home, Self Care Condition: Fair Prescriptions: Lactobacillus Acidophilus [Acidophilus Lactobacilli] 1 each PO BID #10 capsule Ciprofloxacin [Cipro] 250 mg PO Q12H #10 tablet metroNIDAZOLE [Flagyl] 250 mg PO Q6H #20 tablet Diet: Soft Activity Restrictions: Activity as Tolerated Shower Restrictions: No Instruction Topics: Diverticulitis Dc Health Concerns: You were admitted to the hospital because you needed different antibiotics and more aggressive management of your diverticulitis and abdominal pain. You are being discharged home to take several more days of different antibiotics (than the previous Augmentin), and a probiotic. New prescriptions were electronically sent to your [facility] pharmacy in [place]. Stay well-hydrated, especially if you are still having watery stool. Resume all your other pre-hospital medications. You should eat a very easily digestible diet which is soft and is low in fiber, while the diverticulitis is healing. You should have a follow-up appointment with Dr. Sandoval of General Surgery in about 6 weeks. The number to call to schedule an appointment is [phone]. Plan of Treatment: As above. Care Goals: Improvement in symptoms and stabilization are the goals. Assessment: The patient understands and is agreeable with the plan. Additional Instructions or Follow Up instructions: You should see your Primary Care Provider for hospital follow-up in the next 1 to 2 weeks, and remember about the appointment to the general surgeon as above. No Smoking: If you smoke, Please STOP! Call for help. Follow-up with: Jaylen Carranza MD [Primary Care Provider] -
[2020-07-16] MEDS: D5NS W/20 MEQ KCL 1,000 ML IV SCH (01:08)
[2020-07-16] MEDS: SODIUM CHLORIDE FLUSH 0.9% 10 ML SYRINGE IVP SCH ×2 (01:09→08:56)
[2020-07-16] MEDS: metroNIDAZOLE 500 MG/100 ML 500 MG/100 ML BAG IV SCH ×2 (01:23→09:00)
[2020-07-16 05:25] LABS: BASOPHILS % (AUTO) 0.2 %; EOSINOPHILS # (AUTO) 0.3 10^3/uL (0.0-0.7); HGB - HEMOGLOBIN 10.7 g/dL (12.0-16.0); LYMPHOCYTES # (AUTO) 0.7 10^3/uL (1.5-3.5); LYMPHOCYTES % (AUTO) 13.8 %; MEAN CORPUSCULAR HEMOGLOBIN 28.8 pg (27.0-31.0); MEAN CORPUSCULAR HGB CONC 32.2 g/dL (32.0-36.0); MEAN CORPUSCULAR VOLUME 89.2 fL (81.0-99.0); MEAN PLATELET VOLUME 10.7 fL (7.9-10.8); MONOCYTES # (AUTO) 0.7 10^3/uL (0.0-1.0); MONOCYTES % (AUTO) 13.3 %; NEUTROPHILS # (AUTO) 3.6 10^3/uL (1.5-6.6); NEUTROPHILS % (AUTO) 67.3 %; PLT - PLATELET COUNT 162 10^3/uL (130-450); RED BLOOD COUNT 3.72 10^6/uL (4.20-5.40); RED CELL DISTRIBUTION WIDTH 13.3 % (12.0-15.0); WHITE BLOOD COUNT 5.4 x10^3/uL (4.8-10.8)
[2020-07-16] MEDS: PANTOPRAZOLE 40 MG TABLET PO SCH (06:14)
[2020-07-16] MEDS: CIPROFLOXACIN 400 MG/200 ML 400 MG/200 ML BAG IV SCH (06:14)
[2020-07-16 08:19] VITALS: BP 110/79
[2020-07-16] MEDS: MULTIVITAMIN TABLET PO SCH (08:55)
[2020-07-16] MEDS: DULoxetine 30 MG CAPSULE PO SCH (08:55)
[2020-07-16] MEDS: ENOXAPARIN 40 MG/0.4 ML SYRINGE SUBQ SCH (08:55)
--- NOTE | 2020-07-16 11:06 | DISCHARGE SUMMARY ---
Discharge Summary Admit Date: 07/12/20 Discharge Date: 07/16/20 Discharging Provider: Dr Randi Celestin Primary Care Provider: Dr Jaylen Carranza Code Status: Do Not Attempt Resuscitation Condition at Discharge: Fair Discharge Disposition: 01 Home, Self Care - HPI History of Present Illness: From the admission H&P of Leonardo Mclaughlin NP: This is a 89-year-old female with a PMH significant for colon cancer, heart murmur, fainting, GERD, colon polyps, chronic constipation, renal insufficiency, chronic healing loss, depression, anxiety, osteoarthritis, osteoporosis, chronic back pain, who comes to the emergency department for complain of persistent abdominal pain. Patient reported she had a history of colon cancer, and had surgery in 1971 which removed 14 cm of her colon. Patient also reports she had a colonoscopy about 10 years ago which was normal as she reports. She describes generalized abdominal pain for about 2 to 3 weeks. She denies nausea, vomiting, diarrhea. She went to see her primary care provider 2 days ago, had routine labs and had a CT scan of the abdomen. The CT scan show sigmoid colon diverticulitis, also concern for possible colon neoplasm with a short segment of bowel wall thickening and under-distention noted in the descending colon. Pt was recommended a colonoscopy in follow-up by Radiology. Patient was started on Augmentin by her PCP office which she has been taking for 2 days but does not feel improved and she came to the ER . A repeated CT imaging done today is essentially unchanged from 2 days ago. She denies melena or hematochezia. She denies chest pain, fever, chill, shortness of breath. She will be admitted for failure of outpatient management and antibiotics. Discussed the care goal with the patient, patient request to be DNR. - HOSPITAL COURSE Hospital Course: (1) Diverticulitis This patient failed outpatient oral Augmentin treatment which she had taken for 3 days without improvement. Repeat CT scan of abdomen still showed dive rticulitis. She got IV antibiotics here with Cipro and Flagyl and had General Surgery consult was done and recommendations were to continue with IV antibiotics and start to advance the diet to soft, low fiber. She was discharged to take 6 more days of oral Cipro and Flagyl antibiotics and a prob iotic, Lactobacillus. (2) Bowel wall thickening There is a stricture in the colon, which is suspicious for cancer however there is no lymphadenopathy or other signs of cancer and this may be thickening from chronic diverticulitis. She was seen in consult by the General Surgeon, Dr. Sandoval, and no flex sig or colonoscopy was planned during acute diverticulitis. The plan for this patient is to see Dr. Juarez in 6 weeks in the General Surgery clinic. (3) Dehydration The patient was clinically dehydrated on presentation and had elevated creat. She got 2 L in the ER then 1 L of fluids overnight. Due to liquidy diarrhea, we continued IV maintenance hydration, until we could see that her oral intake was adequate. (4) Hypokalemia due to excessive gastrointestinal loss of potassium We replaced this with iv K riders and also maintenance fluid containing K. (5) Heart murmur An Echo was done and showed normal LV and RV contractility, and only mild tricuspid regurgitation, and mildly increased PA pressure of 39 mmHg. (6) Depression We resumed patient home medication Cymbalta. - ALLERGIES Allergies/Adverse Reactions: Allergies Allergy/AdvReac Type Severity Reaction Status Date / Time adhesive AdvReac Severe Skin comes Verified 07/13/20 14:54 off - MEDICATIONS Home Medications: Ambulatory Orders Medication Instructions Recorded Confirmed DULoxetine [Cymbalta] 60 mg PO DAILY 10/16/13 07/14/20 Multivitamin [Multivitamins] 1 each PO DAILY 03/17/15 07/14/20 Ciprofloxacin [Cipro] 250 mg PO Q12H #10 tablet 07/16/20 Lactobacillus Acidophilus 1 each PO BID #10 capsule 07/16/20 [Acidophilus Lactobacilli] metroNIDAZOLE [Flagyl] 250 mg PO Q6H #20 tablet 07/16/20 - PHYSICAL EXAM AT DISCHARGE General Appearance: positive: No acute distress, Alert Eyes Bilateral: positive: Normal inspection, EOMI ENT: positive: ENT inspection nml, No signs of dehydration Neck: positive: Nml inspection, No JVD Respiratory: positive: No respiratory distress, Breath sounds nml Cardiovascular: positive: Regular rate & rhythm, Other (1-2/6 systolic murmur) Abdomen: positive: Non-tender, Nml bowel sounds, No distention Skin: positive: Warm, Dry Extremities: positive: Non-tender, Nml appearance, No pedal edema Neurologic/Psychiatric: positive: Oriented x3, Motor nml - LABS Result Diagrams: 07/16/20 04:50 07/16/20 04:50 - DIAGNOSTIC IMAGING Diagnostic Imaging Results: Final report reviewed - FOLLOW UP Follow Up: See PCP in routine follow-up, and see Dr Sandoval in General Surgery clinic in 6 weeks. - TIME SPENT Time Spent in Discharge (Minutes): 30
== END 2020-07-16 13:19 | disposition home or self-care (01) | DRG 392 ==
LOC: ED 14:37 → MS2 17:33
PROVIDERS: ADMIT Nurse Practitioner Gerontology; ATTEND Internal Medicine
DX: K57.32 Diverticulitis of large intestine without perforation or abscess without bleeding (principal); K63.89 Other specified diseases of intestine; E86.0 Dehydration; E87.6 Hypokalemia; R01.1 Cardiac murmur, unspecified; F32.9 Major depressive disorder, single episode, unspecified; Z85.038 Personal history of other malignant neoplasm of large intestine; Z90.49 Acquired absence of other specified parts of digestive tract; K63.9 Disease of intestine, unspecified; Z66 Do not resuscitate; Z20.828 Contact with and (suspected) exposure to other viral communicable diseases
CPT/HCPCS: 36415; 71045; 74177; 80048; 80053; 81003; 82378; 83605; 83690; 83735; 84100; 85025; 87631; 93306; 99284; 99285; A9270; J1650; Q9967; 0202U; 81001; 87086

== ENCOUNTER 2020-07-31 10:49 | Outpatient (CLI) | payer MEDICARE, OTHER ==
[2020-07-31 15:35] LABS: BASOPHILS % (AUTO) 0.2 %; EOSINOPHILS # (AUTO) 0.2 10^3/uL (0.0-0.7); EOSINOPHILS % (AUTO) 3.5 %; HGB - HEMOGLOBIN 13.1 g/dL (12.0-16.0); LYMPHOCYTES % (AUTO) 20.2 %; MEAN CORPUSCULAR HEMOGLOBIN 28.9 pg (27.0-31.0); MEAN CORPUSCULAR VOLUME 93.4 fL (81.0-99.0); MEAN PLATELET VOLUME 11.6 fL (7.9-10.8); MONOCYTES # (AUTO) 0.6 10^3/uL (0.0-1.0); MONOCYTES % (AUTO) 12.3 %; NEUTROPHILS # (AUTO) 3.1 10^3/uL (1.5-6.6); NEUTROPHILS % (AUTO) 63.4 %; PLT - PLATELET COUNT 174 10^3/uL (130-450); RED BLOOD COUNT 4.53 10^6/uL (4.20-5.40); RED CELL DISTRIBUTION WIDTH 14.1 % (12.0-15.0); WHITE BLOOD COUNT 4.9 x10^3/uL (4.8-10.8)
== END 2020-07-31 10:50 | disposition home or self-care (01) ==
LOC: LAB.S 10:49
PROVIDERS: ATTEND Internal Medicine
DX: D64.9 Anemia, unspecified (principal)
CPT/HCPCS: 36415; 82728; 85025

== ENCOUNTER 2020-08-17 08:40 | Day surgery (SDC) | payer MEDICARE, OTHER ==
[2020-08-17] MEDS ORDERED: LACTATED RINGERS 1,000 ML IV ONE ×2 (09:21→10:12)
[2020-08-17] MEDS ORDERED: MIDAZOLAM 2 MG/2 ML VIAL ONE (09:50)
[2020-08-17] MEDS ORDERED: fentaNYL 100 MCG/2 ML VIAL ONE (09:50)
[2020-08-17 10:44] VITALS: BP 109/52
--- OUTSIDE RECORDS SUMMARY | 2020-08-23 01:02 | EXTERNAL MEDICAL SUMMARY RPT | Continuity of Care Document ---
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 2013-10-16 09:53 ASTHMA, UNSPECIFIED [facility] 2013-10-16 09:53 SHORTNESS OF BREATH [facility] 2013-10-16 09:53 HX OF COLONIC MALIGNANCY [facility] 2013-11-24 09:19 ANXIETY STATE NOS [facility] 2013-11-24 09:19 SENILE CATARACT NOS [facility] 2013-11-24 09:19 ASTHMA, UNSPECIFIED [facility] 2013-11-24 09:19 ESOPHAGEAL REFLUX [facility] 2013-11-24 09:19 OSTEOARTHROS NOS-UNSPEC [facility] 2013-12-21 08:37 OTH SCREEN MAMMO-MALIGN NEOPLASM [facility] BREAST 2014-03-12 11:02 LOC OSTEOARTH NOS-L/LEG [facility] 2014-11-30 10:04 OSTEOPOROSIS NOS [facility] 2015-01-06 10:56 OTH SCREEN MAMMO-MALIGN NEOPLASM [facility] OF BREAST 2015-03-20 11:03 ANXIETY STATE NOS [facility] 2015-03-20 11:03 DEPRESSIVE DISORDER NEC [facility] 2015-03-20 11:03 HEARING LOSS NOS [facility] 2015-03-20 11:03 ESOPHAGEAL REFLUX [facility] 2015-03-20 11:03 RENAL URETERAL DIS NOS [facility] 2015-03-20 11:03 ARTHROPATHY NOS-UNSPEC [facility] [place] 2015-03-20 11:03 TRIGGER FINGER [facility] 2015-03-20 11:03 OTHER CONVULSIONS [facility] 2015-03-20 11:03 ABN INVOLUN MOVEMENT NEC [facility] 2015-03-20 11:03 CARDIAC MURMURS [facility] 2015-05-08 15:43 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 2015-05-08 15:43 ACUTE URI NOS [facility] 2015-05-08 15:43 DIZZINESS AND GIDDINESS [facility] 2015-05-08 15:43 CARDIAC MURMURS [facility] 2015-06-02 11:27 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 2015-06-02 11:27 DISORDER OF KIDNEY AND URETER, [facility] UNSPECIFIED 2015-06-02 11:27 OTHER FATIGUE [facility] 2015-10-13 09:29 BILATERAL PRIMARY OSTEOARTHRITIS [facility] OF HIP 2015-12-25 14:17 ENCNTR SCREEN MAMMOGRAM FOR [facility] MALIGNANT NEOPLASM OF BREAST 2016-04-23 16:12 UNILATERAL PRIMARY [facility] OSTEOARTHRITIS, RIGHT HIP 2016-04-23 16:12 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, LUMBAR REGION 2016-04-23 16:12 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, LUMBAR REGION 2016-04-23 16:12 OTHER SPRAIN OF RIGHT HIP, [facility] INITIAL ENCOUNTER 2016-05-23 12:13 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, LUMBAR REGION 2016-05-23 12:13 SPONDYLS W/O MYELOPATHY OR [facility] RADICULOPATHY, LUMBOSACR REGION 2016-05-23 12:13 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, LUMBAR REGION 2016-10-09 09:38 PAIN IN RIGHT HIP [facility] 2016-10-09 09:38 DISORDER OF BONE, UNSPECIFIED [facility] 2016-10-11 10:51 DISORDER OF BONE, UNSPECIFIED [facility] 2016-10-11 10:51 ENCNTR SCREEN FOR DIS [facility] BLD/BLD-FORM ORG/IMMUN MECHN 2016-10-18 15:36 URINARY TRACT INFECTION, SITE [facility] NOT SPECIFIED 2016-10-18 15:36 HYPERGLYCEMIA, [facility]NSPECIFIED [facility] 2016-10-18 15:36 ENCOUNTER FOR PREPROCEDURAL [facility] 2016-10-18 15:36 ENCOUNTER FOR OTHER [facility] PREPROCEDURAL EXAMINATION 2018-02-02 07:23 HYPERLIPIDEMIA, UNSPECIFIED [facility] 2018-02-02 07:23 OTHER SPECIFIED ANXIETY [facility] DISORDERS 2018-02-02 07:23 OTHER FATIGUE [facility] 2018-02-04 20:55 HYPERLIPIDEMIA, UNSPECIFIED [facility] 2018-02-04 20:55 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, UNSPECIFIED EYE 2018-07-08 09:58 UNILATERAL PRIMARY [facility] OSTEOARTHRITIS, LEFT KNEE 2019-10-01 11:48 ACUTE UPPER RESPIRATORY [facility] INFECTION, UNSPECIFIED 2019-10-01 11:48 SYNCOPE AND COLLAPSE [facility] 2020-01-26 14:04 [facility]NIA [facility] 2020-07-10 00:00:00 Abdominal pain, [facility] 2020-07-10 00:00:00 Abdominal pain, other specified [facility] site; multiple sites [facility] 2020-07-10 00:00:00 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 [facility] 2020-07-10 00:00:00 [facility] 2020-07-10 00:00:00 CT [facility] 2020-07-10 00:00:00 COMPREHENSIVE METABOLIC PANEL [facility] 2020-07-10 00:00:00 CEA [facility] 2020-07-10 00:00:00 CBC [facility]Diff[facility] 2020-07-10 00:00:00 Lower abdominal [facility], [facility] unspecified [facility] 2020-07-10 00:00:00 Unspecified abdominal pain [facility] 2020-07-10 00:00:00 Dizziness and giddiness [facility] 2020-07-10 00:00:00 Syncope and collapse [facility] 2020-07-10 00:00:00 Personal history of other [facility] malignant neoplasm of large [facility] intestine 2020-07-10 00:00:00 Abdominal [facility] 2020-07-10 00:00:00 Tobacco use and exposure [facility] 2020-07-10 00:00:00 [facility] sm[facility] 2020-07-10 00:00:00 [facility]izziness [facility] 2020-07-10 00:00:00 Near syncope [facility] 2020-07-10 00:00:00 History of malignant neoplasm of id [facility] Primary Care colon [facility] 2020-07-10 00:00:00 Feeling down, depressed, or [facility] hopeless? [facility] 2020-07-10 00:00:00 [facility] 2020-07-10 00:00:00 Patient Health Questionnaire 2 [facility] item (PHQ2) total score [facility] 2020-07-10 00:00:00 Tobacco smoking status NHIS [facility] 2020-07-10 08:00 LOWER ABDOMINAL PAIN, [facility] UNSPECIFIED 2020-07-11 00:00:00 Diverticulitis of colon [facility] mention of hemorrhage [facility] 2020-07-11 00:00:00 Nonspecific (abnormal) findings [facility] Primary Care on radiological and other [facility] examination of abdominal area, including retroperitoneum 2020-07-11 00:00:00 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 [facility] 2020-07-11 00:00:00 Diverticulitis of large [facility] intestine without perforation or Freelan d [facility] abscess without bleeding 2020-07-11 00:00:00 Abnormal findings on diagnostic [facility] Primary [facility] imaging of other abdominal [facility] regions, including retroperitoneum 2020-07-11 00:00:00 Personal history of other [facility] Primary Care malignant neoplasm of large [facility] intestine 2020-07-11 00:00:00 [facility]icul[facility] 2020-07-11 00:00:00 History of malignant neoplasm of [facility] Primary [facility] colon [facility] 2020-07-11 00:00:00 Imaging of abdomen abnormal [facility] 2020-07-11 11:41 ABNORMAL FINDINGS ON DX IMAGING [facility] OF PRT DIGESTIVE TRACT 2020-07-11 11:41 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 INTESTINE 2020-07-13 17:33 DEHYDRATION [facility] al Center 2020-07-13 17:33 MAJOR DEPRESSIVE DISORDER, [facility] SINGLE EPISODE, UNSPECI 2020-07-13 17:33 DVTRCLI OF LG INT W/O [facility] PERFORATION OR ABSCESS W/O B 2020-07-13 17:33 DVTRCLI OF LG INT W/O [facility] PERFORATION OR ABSCESS W/O BLEEDING 2020-07-13 17:33 OTHER SPECIFIED DISEASES OF [facility] INTESTINE 2020-07-13 17:33 CARDIAC MURMUR, UNSPECIFIED [facility] 2020-07-13 17:33 [facility] D 2020-07-13 17:33 CON[facility]CT [facility] DISEASES 2020-07-13 17:33 DO NOT RESUSCITATE [facility] 2020-07-13 17:33 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 IN 2020-07-13 17:33 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 INTESTINE 2020-07-13 17:33 ACQUIRED ABSENCE OF OTHER [facility] SPECIFIED PARTS OF DIGES 2020-07-13 17:33 HYPOKALEMIA [facility] 2020-07-13 17:33 MAJOR DEPRESSIVE DISORDER, [facility] SINGLE EPISODE, UNSPECIFIED 2020-07-13 17:33 DISEASE OF INTESTINE, [facility] UNSPECIFIED 2020-07-13 17:33 ACQUIRED ABSENCE OF OTHER [facility] SPECIFIED PARTS OF DIGESTIVE TRACT 2020-07-31 00:00:00 Abdominal pain, unspecified [facility] 2020-07-31 00:00:00 [facility] 2020-07-31 00:00:00 CBC W/Diff[facility]Plt [facility] 2020-07-31 00:00:00 Anemia, unspecified [facility] 2020-07-31 00:00:00 Unspecified abdominal pain [facility] 2020-07-31 00:00:00 Syncope and collapse [facility] Pr imary [facility] 2020-07-31 00:00:00 [facility]dominal [facility] 2020-07-31 00:00:00 Health-related [facility] 2020-07-31 00:00:00 Tobacco use and exposure [facility] 2020-07-31 00:00:00 Exercise [facility] Prim [facility] 2020-07-31 00:00:00 Never smoker [facility] 2020-07-31 00:00:00 Syncope [facility] 2020-07-31 00:00:00 Anemia [facility] [place] 2020-07-31 00:00:00 Alcohol use [facility] 2020-07-31 00:00:00 Tobacco smoking status NHIS [facility] Primary Care [facility] 2020-07-31 10:49 ANEMIA, UNSPECIFIED [facility] 2020-08-01 00:00:00 [facility] 2020-08-01 00:00:00 Tobacco use and exposure [facility] Primary [facility] 2020-08-01 00:00:00 [facility] 2020-08-01 00:00:00 Never smoker [facility] [place] 2020-08-01 00:00:00 Alcohol use [facility] [place] 2020-08-01 00:00:00 Tobacco smoking status RUST [facility] Primary Care [facility] Allergies date description facility SULFA (SULFONAMIDE ANTIBIOTICS) [facility] CODEINE [facility] METRONIDAZOLE [facility] TRAZODONE [facility] PEANUT [facility] ADHESIVE TAPE-SILICONES [facility] adhesive [facility] NO KNOWN ALLERGIES [facility] NO ALLERGY INFORMATION AVAILABLE [facility] NSAIDS (NON-STEROIDAL ANTI-INFLAMMATORY DRUG) [facility] PENICILLINS [facility] NO KNOWN ALLERGIES [facility] HALOPERIDOL [facility] CODEINE [facility] IBUPROFEN [facility] TRAMADOL [facility] PROMETHAZINE [facility] TRAZOD[facility] SERTRALINE [facility] CYCLOBENZAPRINE [facility] HYDROCODONE-ACETAMINOPHEN [facility] adhesive [facility] NO ALLERGY INFORMATION AVAILABLE [facility] ACETAMINOPHEN [facility] AMPICILLIN [facility] ASPIRIN [facility] CAPTOPRIL [facility] CEPHALEXIN [facility] CEPHRADINE [facility] CIPROFLOXACIN [facility] CLINDAMYCIN [facility] [place] EXTRACT [facility] POLLEN EXTRACT [facility] PREDNISONE [facility] PROCHLORPERAZINE [facility] SERTRALINE [facility] SULFAMETHOXAZOLE-TRIMETHOPRIM [facility] COMPAZINE [facility] PENICILLINS [facility] SULFA ANTIBIOTICS [facility] SHELLFISH [facility] TOMATO [facility] STRAWBERRY [facility] adhesive [facility] NO KNOWN ALLERGIES [facility] NO KNOWN ALLERGIES [facility] CEPHALEXIN [facility] LEVOFLOXACIN [facility] HYDROCODONE-ACETAMINOPHEN [facility] adhesive [facility] Medications date description facility 2020-07-10 00:00:00 null [facility] 2020-07-10 00:00:00 null [facility] 2020-07-10 00:00:00 AMOXICILLIN-POT CLAVULANATE [facility] 2020-07-10 00:00:00 AMOXICILLIN-POT CLAVULANATE [facility] 2020-08-01 00:00:00 null [facility] 2020-08-01 00:00:00 null [facility] 2020-08-01 00:00:00 NA SULFATE-K SULFATE-MG SULF [facility] 2020-08-01 00:00:00 NA SULFATE-K SULFATE-MG SULF [facility] Procedures date description facility 2020-07-10 00:00:00 [facility] date description facility 2020-07-10 00:00:00 CT ABDOMEN/PELVIS W [facility] date description facility 2020-07-10 00:00:00 COMPREHENSIVE METABOLIC PANEL [facility] date description facility 2020-07-10 00:00:00 POC URINALYSIS NAUTO W/O SCOPE [facility] date description facility 2020-07-10 00:00:00 CEA [facility] date description facility 2020-07-10 00:00:00 CBC W/Diff/Plt [facility] date description facility 2020-07-10 00:00:00 [facility] date description facility 2020-07-31 00:00:00 Ferritin [facility] date description facility 2020-07-31 00:00:00 CBC W/Diff/Plt [facility] date description facility 2020-07-31 00:00:00 [facility] Results Social History date description facility 2020-07-10 00:00:00 Never smoker [facility] date description facility 2020-07-31 00:00:00 Never smoker [facility] date description facility 2020-08-01 00:00:00 Never smoker [facility] Social History date description facility 2020-07-10 00:00:00 Never smoker [facility] date description facility 2020-07-31 00:00:00 Never smoker [facility] date description facility 2020-08-01 00:00:00 Never smoker [facility] date description facility [phone]
== END 2020-08-17 08:41 | disposition home or self-care (01) ==
LOC: SDS 08:40
PROVIDERS: ATTEND Surgery
DX: R10.9 Unspecified abdominal pain (principal); Z85.038 Personal history of other malignant neoplasm of large intestine; Z87.19 Personal history of other diseases of the digestive system; K64.4 Residual hemorrhoidal skin tags; K64.8 Other hemorrhoids
CPT/HCPCS: 45378; J7120

== ENCOUNTER 2021-09-20 08:00 | Outpatient (CLI) | payer MEDICARE, OTHER ==
--- NOTE | 2021-09-20 15:45 | XRAY Report ---
PROCEDURE: Chest 2 View X-Ray INDICATIONS: LEFT SIDED RIB PAIN TECHNIQUE: 2 view(s) of the chest. COMPARISON: July 13, 2020. FINDINGS: FINDINGS: SUPPORT DEVICES: None. LUNGS/PLEURA: Mildly coarsened interstitial markings. No focal consolidation, pleural effusion or spa ce-occupying pneumothorax. MEDIASTINUM: The cardiomediastinal silhouette is within normal limits. BONES/SOFT TISSUES: No acute abnormality. A surgical anchor projects over the humeral head. IMPRESSION: 1.No acute cardiopulmonary abnormality. Reviewed by: Brandon Rojas MD on 09/20/2021 3:44 PM PST Approved by: Brandon Rojas MD on 09/20/2021 3:44 PM [facility] Station ID: [id number]
== END 2021-09-20 23:59 | disposition home or self-care (01) ==
LOC: DI.S 08:00
PROVIDERS: ATTEND Physician Assistant
DX: R07.81 Pleurodynia (principal)

== ENCOUNTER 2021-10-27 14:31 | Outpatient (CLI) | payer MEDICARE, OTHER ==
--- NOTE | 2021-10-27 18:25 | XRAY Report ---
PROCEDURE: Chest 2 View X-Ray INDICATIONS: LEFT SIDED RIB PAIN TECHNIQUE: 2 view(s) of the chest. COMPARISON: 09/20/2021, 07/13/2020. Correlation is also made with abdomen and pelvis CT, 07/13/2020. FINDINGS: Surgical changes and devices: There is partial visualization of left shoulder postoperative change. C holecystectomy clips are faintly seen on the lateral view. Lungs and pleura: No pleural effusions or pneumothorax. Lungs are clear. Mediastinum: Mediastinal contours are normal. Heart size is normal. Calcification is seen of the a ortic arch. Bones and chest wall: No suspicious bony abnormalities. Age-appropriate degenerative changes are se en. Mild dextroconvex scoliotic curvature is seen. Soft tissues appear unremarkable. IMPRESSION: No displaced rib fracture can be seen. No pneumothorax. Age-appropriate degenerative changes are seen. Reviewed by: Jason Dorsey MD on 10/27/2021 5:24 PM [facility] Approved by: Jason Dorsey MD on 10/27/2021 5:24 PM [facility] Station ID: [id number]
== END 2021-10-27 23:59 | disposition home or self-care (01) ==
LOC: DI.S 14:31
PROVIDERS: ATTEND Emergency Medicine
DX: R07.81 Pleurodynia (principal)

== ENCOUNTER 2021-12-14 10:06 | Outpatient (CLI) | payer MEDICARE, OTHER ==
[2021-12-14 14:54] LABS: BASOPHILS % (AUTO) 0.4 %; EOSINOPHILS # (AUTO) 0.2 10^3/uL (0.0-0.7); EOSINOPHILS % (AUTO) 3.1 %; HGB - HEMOGLOBIN 13.4 g/dL (12.0-16.0); LYMPHOCYTES # (AUTO) 1.4 10^3/uL (1.5-3.5); LYMPHOCYTES % (AUTO) 28.9 %; MEAN CORPUSCULAR HEMOGLOBIN 28.8 pg (27.0-31.0); MEAN CORPUSCULAR HGB CONC 31.9 g/dL (32.0-36.0); MEAN CORPUSCULAR VOLUME 90.3 fL (81.0-99.0); MEAN PLATELET VOLUME 11.8 fL (7.9-10.8); MONOCYTES # (AUTO) 0.7 10^3/uL (0.0-1.0); MONOCYTES % (AUTO) 14.4 %; NEUTROPHILS # (AUTO) 2.6 10^3/uL (1.5-6.6); PLT - PLATELET COUNT 168 10^3/uL (130-450); RED BLOOD COUNT 4.65 10^6/uL (4.20-5.40); WHITE BLOOD COUNT 4.9 x10^3/uL (4.8-10.8)
[2021-12-14 15:24] LABS: ALBUMIN 3.9 g/dL (3.2-5.5); ALBUMIN/GLOBULIN RATIO 1.6 (1.0-2.2); ALKALINE PHOSPHATASE 56 IU/L (42-121); ALT ALANINE AMINOTRANSFERASE 24 IU/L (10-60); AST ASPARTATE AMINOTRANSFERASE 26 IU/L (10-42); BUN - BLOOD UREA NITROGEN 15 mg/dL (6-20); CARBON DIOXIDE - CO2 27 mmol/L (21-32); CHLORIDE 108 mmol/L (101-111); CHOL/HDL RATIO 3.5 (<4.4); CHOLESTEROL 171 mg/dL; GFR - MDRD 52 (>89); GLUCOSE 93 mg/dL (70-100); HDL CHOLESTEROL 49 mg/dL; LDL CHOLESTEROL,CALCULATED 104 mg/dL; LDL/HDL RATIO 2.1 (<4.4); POTASSIUM 4.3 mmol/L (3.5-5.0); SODIUM 141 mmol/L (135-145); TOTAL PROTEIN 6.4 g/dL (6.7-8.2); TRIGLYCERIDES 91 mg/dL; VLDL CHOLESTEROL 18 mg/dL
[2021-12-14 16:00] LABS: THYROID STIMULATING HORMONE 3.19 uIU/mL (0.34-5.60)
== END 2021-12-14 10:07 | disposition home or self-care (01) ==
LOC: LAB.S 10:06
PROVIDERS: ATTEND Internal Medicine
DX: R56.9 Unspecified convulsions (principal); R53.83 Other fatigue; R55 Syncope and collapse; Z79.899 Other long term (current) drug therapy
CPT/HCPCS: 36415; 80053; 80061; 82607; 83721; 84443; 85025

== ENCOUNTER 2021-12-24 17:46 | Emergency (ER) | payer MEDICARE, OTHER ==
--- NOTE | 2021-12-24 18:08 | ED Physician Documentation ---
History of Present Illness - Stated complaint Stated Complaint: HEAD INJ - Chief complaint Chief Complaint: Trauma Hd/Nk - Additonal information Additional information: 89-year-old female was referred to the emergency department by her colleague at walk-in clinic for evaluation of closed head injury. Patient reports to me she was carrying groceries into her home and she had 2 bags on her left arm that began to slip. She attempted to swing the bags to prevent them from falling off her arm when the momentum carried her to the ground striking her head. She is on sure if she lost consciousness but does remember waking up to the dog licking her face. She did strike the left side of her face on concrete and had a left orbital laceration that was closed with glue at the walk-in clinic. She also has ecchymosis below the left eye. She is complaining of left shoulder pain. Patient is not anticoagulated. She is quite certain this was mechanical and not a syncopal event though she is not sure if she had a lapse in consciousness. Review of Systems Constitutional: denies: Fever, Chills Nose: reports: Reviewed and negative Throat: reports: Reviewed and negative Cardiac: reports: Reviewed and negative Respiratory: reports: Reviewed and negative GI: reports: Reviewed and negative : reports: Reviewed and negative Skin: reports: Laceration (s) Musculoskeletal: reports: Joint pain PD PAST MEDICAL HISTORY - Past Medical History Cardiovascular: Murmur Respiratory: None Neuro: Fainting Endocrine/Autoimmune: None GI: GERD, Colon polyps, Chronic constipation, Diverticulitis, Other : Incontinence, Renal insuffiency HEENT: Chronic vision loss, Chronic hearing loss Psych: Depression, Anxiety Musculoskeletal: Osteoarthritis, Osteoporosis, Chronic back pain Derm: None - Past Surgical History Past Surgical History: Yes General: Cholecystectomy, Appendectomy, Bowel surgery, Colonoscopy, EGD, Other Ortho: Rotator cuff repair, Spine surgery /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: Hysterectomy HEENT: Cataracts, Tonsil/Adenoidectomy - Present Medications Home Medications: Ambulatory Orders Medication Instructions Recorded Confirmed DULoxetine [Cymbalta] 60 mg PO DAILY 10/16/13 08/08/20 Multivitamin [Multivitamins] 1 each PO DAILY 03/17/15 08/08/20 - Allergies Allergies/Adverse Reactions: Allergies Allergy/AdvReac Type Severity Reaction Status Date / Time adhesive AdvReac Severe Skin comes Verified 12/24/21 17:49 off - Social History Does the pt smoke?: No Smoking Status: Never smoker Does the pt drink ETOH?: No Does the pt have substance abuse?: No PD ED PE EXPANDED - General General: Alert, No acute distress - HEENT HEENT: Ears normal (No hemotympanums. Negative johnson sign), Other (Ecchymosis below the left eye. EOMI intact. Left lateral orbital laceration that has been closed with glue by the walk-in provider. Mild tenderness surrounding the orbit without ptosis.) - Neck Neck: Supple w/out meningeal sx, No tenderness. No: Bony TTP, Limited ROM - Cardiac Cardiac: Regular Rate, Radial strong equal, Pedal strong equal, Cap refill < 2 sec - Respiratory Respiratory: Clear to ausultation gricelda. No: Distress, Labored - Back Back: Normal ROM. No: Vertebral tenderness, Soft tissue tenderness - Derm Derm: Normal color, Bruising, Laceration(s) (Laceration on left lateral eye has been closed with Dermabond by previous provider) - Extremities Extremities: Left shoulder (Tenderness of the proximal humerus. Reduced range of motion to about 45 degrees abduction and extension. No clavicular tenderness. No tenderness at the elbow wrist or hand. 2+ distal radial pulse.) - Neuro Neuro: Alert and Oriented X 3, CNII-XII intact, Normal gait, Normal finger nose, Normal speech - GCS Eye Opening: Spontaneous Motor: Obeys Commands Verbal: Oriented Total: 15 Results - Vitals Vitals: Vital Signs - 24 hr 12/24/21 17:49 Temperature 36.5 C Heart Rate 74 Respiratory 16 Rate Blood Pressure 122/88 H O2 Saturation 99 Oxygen O2 Source Room air - Rads (name of study) max fac ct Radiology: Final report received (Left periorbital soft tissue swelling without fracture or foreign body) CT head Radiology: Final report received (No acute intracranial disease process) CT cervical spine Radiology: Final report received (No fracture. No osseous lesions.) left shoulder Radiology: Final report received (No acute fracture or osseous lesion) CXR Radiology: Final report received (No acute cardiopulmonary disease process) PD MEDICAL DECISION MAKING - ED course Complexity details: reviewed results, re-evaluated patient, d/w patient, d/w family ED course: 89-year-old female presents to the emergency department for evaluation of left shoulder pain as well as closed head injury. She was carrying groceries when the bags began to slip from her arm. In order to prevent them from falling she swung her arm but the way to the groceries pulled her to the ground. She was seen a local walk-in clinic where the laceration lateral to her left eye was closed with glue. 9 she is unsure if she had a lapse in consciousness. CT of the head is negative for acute intracranial findings. Cervical spine is negative. Maxillofacial CT does not show any orbital fractures. She has no extraocular entrapment on exam . Chest x-ray was negative. She is tender of the proximal humerus but the x-ray is without acute findings. I suspect that she may actually have a rotator cuff pathology given the mechanism. Patient declined a sling. She is advised Tylenol and ibuprofen at home for any discomfort. Emergent return precautions otherwise discussed. Departure - Departure Disposition: Home, Self Care Clinical Impression: Fall from ground level, Facial contusion Shoulder pain, left Qualifiers: Chronicity: acute Qualified Code(s): M25.512 - Pain in left shoulder Condition: Stable Record reviewed to determine appropriate education?: Yes Instructions: ED Head Injury Closed Ch, ED Torn Rotator Cuff Follow-Up: Janna Corona MD [Primary Care Provider] - Comments: Jumana kim are seen today in the emergency department after you Fell while bringing groceries into your house. The CT of the bones of your face, your head and your neck do not show any broken bones bruising or bleeding. The x-ray of your left shoulder is also normal. As we discussed I suspect that you may actually have a rotator cuff tear given the mechanism in which you fell. You will find benefit from icing your shoulder for 10 minutes 2-3 times a day. Practice gently ranging it so that you do not get a frozen joint. Follow-up w ith your primary care doctor if your shoulder pain is not markedly better in 7 to 10 days you may benefit from referral to orthopedics or from further evaluation with imaging such as an MRI. If you find that you develop any sudden severe headache, become confused, have slurred speech, facial droop or excessively sleepy or lethargic then please return immediately to the ER for a second evaluation.
--- NOTE | 2021-12-24 18:33 | CT Report ---
PROCEDURE: HEAD WO INDICATIONS: + LOC TECHNIQUE: Noncontrast 4.5 mm thick angled axial sections acquired from the foramen magnum to the vertex. For r adiation dose reduction, the following was used: automated exposure control, adjustment of mA and/or kV according to patient size. COMPARISON: None FINDINGS: Image quality: Excellent. CSF spaces: Basal cisterns are patent. No extra-axial fluid collections. The ventricles are symmet yaneli in size and shape. Brain: No intracranial bleeds or masses. There is cerebral volume loss for age, with resultant vent ricular and sulcal prominence. There are periventricular and deep white matter chronic small vessel ischemic changes. There is intracranial internal carotid artery atherosclerosis. Skull and face: Calvarium and visualized facial bones appear intact, without suspicious lesions. Sinuses: Visualized sinuses and mastoids are clear. IMPRESSION: No acute intracranial disease process. Reviewed by: Lilli Metcalf MD, PhD on 12/24/2021 6:32 PM PDT Approved by: Lilli Metcalf MD, PhD on 12/24/2021 6:32 PM PDT Station ID: [id number]
--- NOTE | 2021-12-24 18:36 | CT Report ---
PROCEDURE: Maxillofacial CT without contrast INDICATIONS: left orbital ecchymosis after fall TECHNIQUE: Noncontrast 1.5 mm thick axial images acquired from the mandible through the frontal sinuses, with co andrea and sagittal reformatting. For radiation dose reduction, the following was used: automated ex posure control, adjustment of mA and/or kV according to patient size. COMPARISON: None. FINDINGS: Image quality: Excellent. Bones and teeth: Orbital hernandez are intact. Sinus hernandez show no fracture or deformity. Nasal bones and septum are intact. Visualized portions of the mandible demonstrate no fractures or subluxation. Zygomatic arches are intact. Pterygoid plates are intact. Visualized portions of the skull base an d auditory canals are intact. Sinuses: Paranasal sinuses are aerated, without fluid levels, mucosal thickening, or mucoceles. Mas toid air cells are aerated. Large bilateral nasal antral windows present with maintenance of the ost iomeatal units. Small bilateral Nilson cells noted. Soft tissues: No edema, masses, or fluid collections. No enlarged lymph nodes. No soft tissue lace rations or debris. Left periorbital soft tissue swelling noted. Incidental bilateral intraocular lens replacements present. Vascular: Visualized vascular structures appear normal in the absence of contrast. Bony vascular fo ramina and canals are intact. IMPRESSION: 1. Left periorbital soft tissue swelling without fracture or foreign body Reviewed by: Anjel Saini MD on 12/24/2021 5:34 PM [facility] Approved by: Anjel Saini MD on 12/24/2021 5:34 PM AKDT Station ID: [id number]
--- NOTE | 2021-12-24 18:38 | CT Report ---
PROCEDURE: CERVICAL SPINE WO INDICATIONS: syncope vs glf? TECHNIQUE: Noncontrast 3 mm thick sections acquired from the skull base to the T4 level. Sagittal and coronal r eformats were then constructed. For radiation dose reduction, the following was used: automated exp osure control, adjustment of mA and/or kV according to patient size. COMPARISON: None. FINDINGS: Image quality: Excellent. Bones: No fractures or dislocations. Visualized superior ribs are intact. Spine degenerative disc d isease and facet arthropathy are noted. Soft tissues: Prevertebral soft tissues are normal in thickness. No paravertebral hematomas. No ap ical pneumothoraces. IMPRESSION: No fracture. No acute osseous lesion. If there is continued clinical concern for pathology, then MRI should be considered for further evaluation. Reviewed by: Lilli Metcalf MD, PhD on 12/24/2021 6:36 PM PDT Approved by: Lilli Metcalf MD, PhD on 12/24/2021 6:36 PM PDT Station ID: [id number]
--- NOTE | 2021-12-24 19:00 | XRAY Report ---
PROCEDURE: Chest 1 View X-Ray INDICATIONS: chest pain TECHNIQUE: One view of the chest was acquired. COMPARISON: 10/24/2001 07/13/2020 FINDINGS: Surgical changes and devices: None. Lungs and pleura: No pleural effusions or pneumothorax. Lungs are clear. Mediastinum: Mediastinal contours appear normal. Heart size is normal. Bones and chest wall: No suspicious bony lesions. Overlying soft tissues appear unremarkable. IMPRESSION: No acute cardiopulmonary disease process. Reviewed by: Lilli Metcalf MD, PhD on 12/24/2021 6:59 PM PDT Approved by: Lilli Metcalf MD, PhD on 12/24/2021 6:59 PM PDT Station ID: [id number]
--- NOTE | 2021-12-24 19:01 | XRAY Report ---
PROCEDURE: Shoulder 3 View LT INDICATIONS: pain after fall TECHNIQUE: 3 views of the shoulder were acquired. COMPARISON: None. FINDINGS: Bones: No fractures or dislocations. No suspicious bony lesions. Visualized ribs appear intact. Amaro ture anchor in the humeral head. Moderate acromioclavicular and glenohumeral joint osteoarthritis. Soft tissues: No suspicious soft tissue calcifications. IMPRESSION: No fracture. No acute osseous lesion. If symptoms and/or clinical concern for pathology persists, further assessment with repeat plain film radiographs (7-10 days) or advanced imaging (CT, MR, bone scan) should be considered. Reviewed by: Lilli Metcalf MD, PhD on 12/24/2021 7:00 PM PDT Approved by: Lilli Metcalf MD, PhD on 12/24/2021 7:00 PM PDT Station ID: [id number]
[2021-12-24 19:42] VITALS: BP 125/79
== END 2021-12-24 19:46 | disposition home or self-care (01) ==
LOC: ED 17:46
DX: M25.512 Pain in left shoulder (principal); S00.83XA Contusion of other part of head, initial encounter; W18.39XA Other fall on same level, initial encounter; Y93.89 Activity, other specified; Y92.008 Other place in unspecified non-institutional (private) residence as the place of occurrence of the external cause
CPT/HCPCS: 80053; 83690; 84484; 85025; 99282; 99284

== ENCOUNTER 2022-04-26 18:25 | Outpatient (CLI) | payer MEDICARE, OTHER ==
--- NOTE | 2022-04-26 11:49 | XRAY Report ---
PROCEDURE: Shoulder 3 View LT INDICATIONS: LEFT SHOULDER PAIN TECHNIQUE: 3 views of the shoulder were acquired. COMPARISON: None. FINDINGS: Bones: No fractures or dislocations. Tendon anchor within the humeral head is present. Moderate jatinder areolar articular osteophyte formation at the acromioclavicular and glenohumeral joints. No suspiciou s bony lesions. Visualized ribs appear intact. Soft tissues: Rounded ossific focus projects over the superior humeral joint. IMPRESSION: 1. Osteoarthritis. 2. Intra-articular loose body versus calcific tendinitis of the rotator cuff. This could be further a ssessed with MRI arthrography, if clinically indicated. Reviewed by: Gene Ludwig MD on 04/26/2022 11:48 AM PDT Approved by: Gene Ludwig MD on 04/26/2022 11:48 AM PDT Station ID: [id number]
== END 2022-04-26 18:26 | disposition home or self-care (01) ==
LOC: DI.S 18:25
PROVIDERS: ATTEND Physician Assistant
DX: M19.012 Primary osteoarthritis, left shoulder (principal)

== ENCOUNTER 2022-06-17 13:59 | Outpatient (CLI) | payer MEDICARE, OTHER ==
--- NOTE | 2022-06-19 16:26 | Mammography Report ---
BILATERAL DIGITAL SCREENING MAMMOGRAM 3D/2D: 06/17/2022 CLINICAL: Routine screening. Comparison is made to exams dated: 12/25/2015 mammogram, 01/06/2015 mammogram, 12/21/2013 mammogram, mammogram, 10/03/2011 mammogram, and 03/18/2011 mammogram - [facility]. There are scattered areas of fibroglandular density in both breasts (category b / 25%-50% glandular t issue). There are benign calcifications in both breasts. No significant masses, calcifications, or other findings are seen in either breast. There has been no significant interval change. IMPRESSION: BENIGN There is no mammographic evidence of malignancy. A 1 year screening mammogram is recommended. This exam was interpreted at Station ID: [id number]. NOTE: For mammograms, a report in lay terms will be sent to the patient. Approximately 15% of breast malignancies will not be visualized mammographically. In the management of a palpable breast mass, a negative mammogram must not discourage biopsy of a clinically suspicious lesion. Electronically Signed By: Michelle tanner/pedro:06/18/2022 15:30:13 ACR BI-RADS Category 2: Benign Finding(s) 3342F PARENCHYMAL PATTERN: (A) - The breast(s) demonstrate(s) scattered fibroglandular densities. BI-RADS CATEGORY: (2) - 2 RECOMMENDATION: (ANNUAL) - Recommend routine annual screening mammography. [id number] 1 year screening LATERALITY: (B)
== END 2022-06-17 14:00 | disposition home or self-care (01) ==
LOC: DI 13:59
PROVIDERS: ATTEND Internal Medicine
DX: Z12.31 Encounter for screening mammogram for malignant neoplasm of breast (principal)